=== PATIENT | male | born 1935 | race Caucasian/White ===

== ENCOUNTER 2023-05-04 04:24 | Emergency (ER) | payer MEDICARE, SELFPAY ==
[2023-05-04] VITALS (16 sets, daily range): BP systolic 110–159; BP diastolic 61–74; PULSE 82–99; RESP 18–33; TEMP 36.7; O2SAT 92–96; BMI 28.5
--- NOTE | 2023-05-04 04:30 | XRR_ITS ---
PROCEDURE INFORMATION: Exam: XR Chest Exam date and time: 05/04/2023 4:33 AM Age: 87 years old Clinical indication: Other: General weakness TECHNIQUE: Imaging protocol: Radiologic exam of the chest. Views: 1 view. COMPARISON: No relevant prior studies available. FINDINGS: Lungs: Unremarkable. No consolidation. Pleural spaces: Unremarkable. No pleural effusion. No pneumothorax. Heart/Mediastinum: Unremarkable. No cardiomegaly. Bones/joints: Degenerative changes are noted in the bones. XR/XR chest 1V portable [id number] IMPRESSION: No acute cardiopulmonary disease.
--- NOTE | 2023-05-04 04:32 | ECG_ITS ---
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 Measurements Intervals [place] Rate: 98 P: 45 TX: 180 QRS: -14 QRSD: 97 T: 7 QT: 359 QTc: 460 Interpretive Statements SINUS RHYTHM WITH FREQUENT VENTRICULAR PREMATURE COMPLEXES WITH OCCASIONAL SUPRAVENTRICULAR PREMATURE COMPLEXES INCOMPLETE RIGHT BUNDLE BRANCH BLOCK [90+ ms QRS DURATION, TERMINAL R IN V1/V2, 40+ ms S IN I/aVL/V4/V5/V6] VOLTAGE CRITERIA FOR LVH [MEETS CRITERIA IN ONE OF: R(aVL), S(V1), R(V5), R(V5/V6)+S(V1)] INFERIOR MYOCARDIAL INFARCTION , PROBABLY OLD [40+ ms Q WAVE AND/OR ST/T ABNORMALITY IN II/aVF] No previous ECG available for comparison Electronically Signed On 05-04-2023 7:50:38 CDT by Jeevan Foster M.D. [email or web address] Mediapearl river county hospitalOrganic Pizza Kitchenkindred hospital [facility].[email or web address]/store/OM/[id number]
[2023-05-04] MEDS: sodium chloride 0.9% 1,000 ML 999 ML IV (04:42)
--- NOTE | 2023-05-04 04:42 | ED_ITS ---
HPI - Weakness General: Chief complaint: Weakness Stated complaint: weakness Time Seen by Provider: 05/04/23 04:25 Source: patient and EMS Mode of arrival: EMS Limitations: no limitations History of Present Illness: 87-year-old male states he has been having increasing weakness over the last 2 days he states that tonight he did get out of bed and then could not walk. He states he is not really able to stand on his own at this time. He denies any fevers she denies any pain anywhere. He states he feels at this point he cannot really take care of himself and only lives with his . Associated symptoms: Denies chest pain, chills, dysuria, fever(s), headache(s), nausea or vomiting Review of Systems Const: Denies: fever(s) or chills Eyes: Denies: blurry vision ENMT: Denies: throat pain or dental pain Card: Denies: chest pain Resp: Denies: dyspnea GI: Denies: abdominal pain, nausea, vomiting or diarrhea : Denies: dysuria Musc: Denies: neck pain or back pain Skin/Breast: Denies: rash Neuro: Reports: weakness in extremities; Denies: headache(s) Physical Exam Const: COMMON NORMALS: patient oriented x3 GENERAL APPEARANCE: frail appearing HENMT: COMMON NORMALS: normocephalic and atraumatic HEAD & SCALP: normocephalic and atraumatic Eye: COMMON NORMALS: Equal, round and reactive pupils present and EOMs intact bilaterally PUPIL: Yes Equal, round and reactive pupils present Neck/C-Spine: COMMON NORMALS: full ROM and supple Chest: COMMONS NORMALS: normal inspection of the chest and normal palpation of entire chest wall Resp: COMMON NORMALS: normal respiratory effort, No retractions, No use of accessory muscles and clear to auscultation bilaterally AUSCULTATION: clear to auscultation bilaterally Cardio: COMMON NORMALS: regular rate, regular rhythm and No murmurs present (Cardio) RATE: regular rate RHYTHM: regular rhythm GI: COMMON NORMALS: Normal to inspection, nondistended, normoactive bowel sounds present, Soft to palpation, non-tender and no masses PALPATION: Yes Soft to palpation Extremity: COMMON NORMALS: normal to inspection and full ROM Neuro: COMMON NORMALS: patient oriented x3, moves all extremities and no focal motor deficits Psych: COMMON NORMALS: mental status grossly normal, Normal thought process present and cooperative THOUGHT PROCESS: Normal thought process present Skin: COMMON NORMALS: no rashes or lesions noted and no wounds GENERAL SKIN EXAM: no rashes or lesions noted Course Vital Signs: Vital signs: Vital Signs Temperature 98.1 F 05/04/23 04:25 Pulse Rate 96 05/04/23 05:30 Respiratory Rate 31 H 05/04/23 05:30 Blood Pressure 150/74 05/04/23 05:30 Pulse Oximetry 96 05/04/23 05:25 Oxygen Delivery Me thod Room Air 05/04/23 04:25 MDM - Weakness Medical Decision Making Patient presents with generalized weakness his blood work here is all normal states he typically uses a cane only at times I did walk him with a walker he ambulated well here we will discharge him home with a walker he is to follow-up with PCP and return if worsening. I did discuss admission he states that he needs to go home though as he has to help his . Informed if he gets weak or not able ambulate with a walker he is return Medical Records I reviewed the patient's medical records. Lab Data I reviewed the patient's lab results. 05/04/23 05:00 05/04/23 05:00 Radiology Impressions Chest X-Ray 05/04/23 04:30 IMPRESSION: No acute cardiopulmonary disease. Laboratory Results WBC 9.43 10^3/uL (3.29-11.43) 05/04/23 05:00 RBC 4.92 10^6/uL (3.85-5.65) 05/04/23 05:00 Hgb 14.10 g/dL (11.27-16.99) 05/04/23 05:00 Hct 44.9 % (37-53) 05/04/23 05:00 MCV 91.3 fl (82-101) 05/04/23 05:00 MCH 28.7 pg (27-33) 05/04/23 05:00 MCHC 31.4 g/dL (30-55) 05/04/23 05:00 RDW 13.2 % (12.1-15.1) 05/04/23 05:00 Plt Count 140 10^3/cmm (157-399) L 05/04/23 05:00 MPV 10.4 fL (7.4-10.4) 05/04/23 05:00 Neut % (Auto) 84.9 % 05/04/23 05:00 Lymph % (Auto) 7.2 % 05/04/23 05:00 [place] % (Auto) 7.2 % 05/04/23 05:00 Eos % (Auto) 0.0 % 05/04/23 05:00 Baso % (Auto) 0.3 % 05/04/23 05:00 Neut # (Auto) 8.00 10^3/uL (1.8-7.7) H 05/04/23 05:00 Lymph # (Auto) 0.7 10^3/uL (0.8-4.8) L 05/04/23 05:00 [place] # (Auto) 0.7 10^3/uL (0.2-0.9) 05/04/23 05:00 Eos # (Auto) 0.0 10^3/uL (0.0-0.8) 05/04/23 05:00 Baso # (Auto) 0.0 10^3/uL (0.0-0.1) 05/04/23 05:00 Nucleated RBC % (auto) 0 % 05/04/23 05:00 Nucleated RBCs # 0.0 /100WBC 05/04/23 05:00 PT 14.70 SECONDS (12.1-14.9) 05/04/23 05:00 INR 1.11 (0.8-1.2) 05/04/23 05:00 Sodium 139 mmol/L (136-145) 05/04/23 05:00 Potassium 3.7 mmol/L (3.5-5.1) 05/04/23 05:00 Chloride 104 mmol/L (98-107) 05/04/23 05:00 Carbon Dioxide 26 mmol/L (22-29) 05/04/23 05:00 Anion Gap 12.7 (5-19) 05/04/23 05:00 BUN 20 mg/dL (8-23) 05/04/23 05:00 Creatinine 1.0 mg/dL (0.7-1.2) 05/04/23 05:00 GFR Calculation Not Reportable 05/04/23 05:00 Glucose 133 mg/dL (65-115) H 05/04/23 05:00 Calculated Osmolality 293 mOsm/kg (285-295) 05/04/23 05:00 Calcium 8.4 mg/dL (8.5-10.5) L 05/04/23 05:00 Magnesium 1.9 mg/dL (1.7-2.3) 05/04/23 05:00 Total Bilirubin 0.8 mg/dL (0.15-1.2) 05/04/23 05:00 AST 20 U/L (0-40) 05/04/23 05:00 ALT 12 U/L (0-41) 05/04/23 05:00 Alkaline Phosphatase 61 U/L (40-130) 05/04/23 05:00 Troponin T Baseline 34 ng/L (0-15) H 05/04/23 05:00 Total Protein 6.0 g/dL (6.6-8.7) L 05/04/23 05:00 Albumin 3.7 g/dL (3.5-5.2) 05/04/23 05:00 Globulin 2.3 g/dL (1.3-4.6) 05/04/23 05:00 TSH 0.60 uIU/mL (0.27-4.20) 05/04/23 05:00 Urine Color Yellow (Yellow) 05/04/23 04:51 Urine Appearance Clear (CLEAR) 05/04/23 04:51 Urine pH 6 (5-7) 05/04/23 04:51 Ur Specific [place] 1.010 (1.005-1.030) 05/04/23 04:51 Urine Protein Neg (Negative) 05/04/23 04:51 Urine Glucose (UA) Norm (Normal) 05/04/23 04:51 Urine Ketones 1+ (Negative) H 05/04/23 04:51 Urine Blood 2+ (Negative) H 05/04/23 04:51 Urine Nitrate Negative (Negative) 05/04/23 04:51 Urine Bilirubin Neg (Negative) 05/04/23 04:51 Urine Urobilinogen 1 mg/dL (Negative) H 05/04/23 04:51 Ur Leukocyte Esterase Negative (Negative) 05/04/23 04:51 Urine RBC 0-4 /hpf (0-2) H 05/04/23 04:51 Urine WBC None /hpf (0-5) 05/04/23 04:51 Ur Squamous Epith Cells 0-4 /hpf (0-5) H 05/04/23 04:51 Amorphous Sediment Not Reportable 05/04/23 04:51 Urine Bacteria Trace /hpf (NONE) 05/04/23 04:51 Urine Mucus 2+ /hpf 05/04/23 04:51 SARS-CoV-2 Ag (Rapid) negative (Negative) 05/04/23 04:44 Discharge Plan Discharge Patient Disposition: Home Clinical Impression: Weakness Condition: Stable Discharge Orders: Discharge ED (Routine); Ordered 05/04/23 Ordered By: Ja Zamarripa Referrals: Geremias Kramer [Primary Care Provider] - Discharge Diet: Advance as tolerated Discharge Activity: Resume usual activity Patient Instructions: Weakness (ED) Coding Level of Care Code ED Animal Laboratory Technician for Baljinder Ring
[2023-05-04 05:17] LABS: Basophils % 0.3 %; Hematocrit 44.9 % (37-53); Lymphocytes # 0.7 10^3/uL (0.8-4.8); Lymphocytes % 7.2 %; Mean Corpuscular HGB Conc 31.4 g/dL (30-55); Mean Corpuscular Hemoglobin 28.7 pg (27-33); Mean Corpuscular Volume 91.3 fl (82-101); Mean Platelet Volume 10.4 fL (7.4-10.4); Monocytes # 0.7 10^3/uL (0.2-0.9); Monocytes % 7.2 %; Neutrophils % 84.9 %; Nucleated Red Blood Cells % 0 %; Platelet Count 140 10^3/cmm (157-399); Red Blood Count 4.92 10^6/uL (3.85-5.65); Red Cell Distribution Width 13.2 % (12.1-15.1); White Blood Count 9.43 10^3/uL (3.29-11.43)
[2023-05-04 05:32] LABS: SARS Covid-2 Antigen negative (Negative)
[2023-05-04 05:32] LABS: Troponin(5th) Baseline 34 ng/L (0-15)
[2023-05-04 05:44] LABS: Alanine Aminotransferase 12 U/L (0-41); Albumin Level 3.7 g/dL (3.5-5.2); Alkaline Phosphatase 61 U/L (40-130); Anion Gap 12.7 (5-19); Aspartate Amino Transferase 20 U/L (0-40); Blood Urea Nitrogen 20 mg/dL (8-23); Calcium 8.4 mg/dL (8.5-10.5); Carbon Dioxide 26 mmol/L (22-29); Chloride 104 mmol/L (98-107); Globulin 2.3 g/dL (1.3-4.6); Glucose 133 mg/dL (65-115); Magnesium 1.9 mg/dL (1.7-2.3); Osmolality Calculated 293 mOsm/kg (285-295); Potassium 3.7 mmol/L (3.5-5.1); Sodium 139 mmol/L (136-145); Total Bilirubin 0.8 mg/dL (0.15-1.2)
[2023-05-04 05:44] LABS: Add Urine Culture? No; Add Urine Microscopic? YES; Bacteria Urine TRACE /hpf; Bilirubin Urine Neg (Negative); Blood Urine 2+ (Negative); Glucose Urine UA Norm (Normal); Ketones Urine 1+ (Negative); Leukocyte Esterase Urine Negative (Negative); Mucus Urine 2+ /hpf; Nitrate Urine Negative (Negative); Protein Urine Neg (Negative); RBC Urine 0-4 /hpf (0-2); Squamous Epithelial Cell Urine 0-4 /hpf (0-5); Urine Appearance Clear (CLEAR); Urine Color Yellow (Yellow); Urobilinogen Urine 1 mg/dL (Negative); pH Urine 6 (5-7)
[2023-05-04 05:46] LABS: INR 1.11 (0.8-1.2)
--- NOTE | 2023-05-04 06:11 | PC.NURSE ---
Call to Attempted to call at home, no answer at this time and no voice mail set up. Also attempted to call patients Elyse zhou, and call went straight to voice mail.
[2023-05-04 07:39] LABS: Troponin 5 2HR 37.25 ng/L (0-15)
[2023-05-04 07:46] LABS: Troponin 5 2HR Delta 3.25 ABS# (0-10)
--- NOTE | 2023-05-04 08:16 | PC.NURSE ---
rec'd phone call from . states she is getting a family member to come get her and then would be here to get him. states it will take a couple of hours and she should be here.
== END 2023-05-04 10:51 | disposition home or self-care (01) ==
PROVIDERS: Emergency Provider Emergency Medicine; PCP Family Medicine
DX: R53.1 Weakness (principal); Z20.822 Contact with and (suspected) exposure to COVID-19
CPT/HCPCS: 36415; 71045; 80053; 81001; 83735; 84443; 84484; 85025; 85610; 87426; 93005; 96360; 99285; J7030

== ENCOUNTER 2023-05-16 21:11 | Inpatient (IN) | payer MEDICARE, SELFPAY ==
--- NOTE | 2023-05-16 21:21 | XRR_ITS ---
PROCEDURE INFORMATION: Exam: XR Chest Exam date and time: 05/16/2023 9:26 PM Age: 86 years old Clinical indication: Fever TECHNIQUE: Imaging protocol: Radiologic exam of the chest. Views: 1 view. COMPARISON: CR (CHEST, ) 05/04/2023 4:33 AM FINDINGS: Lungs: See Heart/Mediastinum finding. Pleural spaces: Unremarkable. No pleural effusion. No pneumothorax. Heart/Mediastinum: Cardiomegaly and mild pulmonary vascular congestion. Bones/joints: Unremarkable. XR/XR chest 1V portable [id number] IMPRESSION: Cardiomegaly and mild pulmonary vascular congestion.
[2023-05-16 21:25] VITALS: BP 186/96; PULSE 90; RESP 22; TEMP 37.3; O2SAT 92
--- NOTE | 2023-05-16 21:29 | ED_ITS ---
HPI - General Adult General: Chief complaint: Fever Stated complaint: fever Time Seen by Provider: 05/16/23 21:12 Source: patient and EMS Mode of arrival: EMS Limitations: no limitations History of Present Illness: 86-year-old male states that he had a tick bite to his right inner leg 2 weeks ago he states that he has had worsening erythema states today he was feeling ill 7 temperature up to 101 with EMS states that also last 2 days he has had a slight cough he denies any shortness of breath he denies any vomiting or diarrhea. He does have pain in his leg Associated symptoms: Deny chest pain, dyspnea, headache(s), nausea or vomiting Review of Systems Const: Reports: fever(s), chills, body aches and fatigue; Denies: change in appetite Eyes: Denies: eye discomfort ENMT: Denies: throat pain or dental pain Card: Denies: chest pain Resp: Reports: non-productive cough; Denies: dyspnea GI: Denies: abdominal pain, nausea, vomiting or diarrhea : Denies: dysuria Musc: Denies: neck pain or back pain Skin/Breast: Reports: erythema Neuro: Denies: headache(s) Physical Exam Const: COMMON NORMALS: patient oriented x3 GENERAL APPEARANCE: ill appearing HENMT: COMMON NORMALS: normocephalic and atraumatic HEAD & SCALP: normocephalic and atraumatic Neck/C-Spine: COMMON NORMALS: full ROM and supple Chest: COMMONS NORMALS: normal inspection of the chest and normal palpation of entire chest wall Resp: COMMON NORMALS: normal respiratory effort, No retractions, No use of accessory muscles and clear to auscultation bilaterally AUSCULTATION: clear to auscultation bilaterally Cardio: COMMON NORMALS: regular rate, regular rhythm and No murmurs present (Cardio) RATE: regular rate RHYTHM: regular rhythm GI: COMMON NORMALS: Normal to inspection, nondistended, normoactive bowel sounds present, Soft to palpation, non-tender and no masses PALPATION: Yes Soft to palpation Extremity: COMMON NORMALS: full ROM Neuro: COMMON NORMALS: patient oriented x3, moves all extremities and no focal motor deficits Psych: COMMON NORMALS: mental status grossly normal, Normal thought process present and cooperative THOUGHT PROCESS: Normal thought process present Skin: NARRATIVE SKIN EXAM: Wound to right inner leg with black eschar in the center with the surrounding erythema that is warm to touch roughly 4 cm in diameter states there is a tick bite there Course Vital Signs: Vital signs: Vital Signs Temperature 99.1 F 05/16/23 21:25 Pulse Rate 77 05/16/23 21:30 Respiratory Rate 18 05/16/23 21:30 Blood Pressure 181/70 05/16/23 21:30 Pulse Oximetry 93 05/16/23 21:30 Oxygen Delivery Me thod Room Air 05/16/23 21:30 MDM - General Adult Medical Decision Making Patient presents here with fever he is also had cough congestion with some leg edema he does have a circular rash to his left lower leg could be cellulitis we will send a tick titer could be possible Lyme disease or other tickborne illness patient started on IV antibiotics, blood cultures as well patient has generalized weakness as well and will admit at this time for some IV antibiotics. Medical Records I reviewed the patient's medical records. Lab Data 05/16/23 21:36 05/16/23 21:36 Radiology Impressions Chest X-Ray 05/16/23 21:21 IMPRESSION: Cardiomegaly and mild pulmonary vascular congestion. Laboratory Results WBC 13.16 10^3/uL (3.29-11.43) H 05/16/23 21:36 RBC 4.94 10^6/uL (3.85-5.65) 05/16/23 21:36 Hgb 13.90 g/dL (11.27-16.99) 05/16/23 21:36 Hct 43.2 % (37-53) 05/16/23 21:36 MCV 87.4 fl (82-101) 05/16/23 21:36 MCH 28.1 pg (27-33) 05/16/23 21:36 MCHC 32.2 g/dL (30-55) 05/16/23 21:36 RDW 13.2 % (12.1-15.1) 05/16/23 21:36 Plt Count 176 10^3/cmm (157-399) 05/16/23 21:36 MPV 10.2 fL (7.4-10.4) 05/16/23 21:36 Neut % (Auto) 83.2 % 05/16/23 21:36 Lymph % (Auto) 10.1 % 05/16/23 21:36 [place] % (Auto) 5.5 % 05/16/23 21:36 Eos % (Auto) 0.3 % 05/16/23 21:36 Baso % (Auto) 0.3 % 05/16/23 21:36 Neut # (Auto) 10.94 10^3/uL (1.8-7.7) H 05/16/23 21:36 Lymph # (Auto) 1.3 10^3/uL (0.8-4.8) 05/16/23 21:36 [place] # (Auto) 0.7 10^3/uL (0.2-0.9) 05/16/23 21:36 Eos # (Auto) 0.0 10^3/uL (0.0-0.8) 05/16/23 21:36 Baso # (Auto) 0.0 10^3/uL (0.0-0.1) 05/16/23 21:36 Nucleated RBC % (auto) 0 % 05/16/23 21:36 Nucleated RBCs # 0.0 /100WBC 05/16/23 21:36 Sodium 139 mmol/L (136-145) 05/16/23 21:36 Potassium 4.0 mmol/L (3.5-5.1) 05/16/23 21:36 Chloride 100 mmol/L (98-107) 05/16/23 21:36 Carbon Dioxide 31 mmol/L (22-29) H 05/16/23 21:36 Anion Gap 12.0 (5-19) 05/16/23 21:36 BUN 22 mg/dL (8-23) 05/16/23 21:36 Creatinine 0.7 mg/dL (0.7-1.2) 05/16/23 21:36 GFR Calculation Not Reportable 05/16/23 21:36 Glucose 118 mg/dL (65-115) H 05/16/23 21:36 Calculated Osmolality 292 mOsm/kg (285-295) 05/16/23 21:36 Lactic Acid 1.0 mmol/L (0.5-2.2) 05/16/23 21:36 Calcium 8.7 mg/dL (8.5-10.5) 05/16/23 21:36 Total Bilirubin 0.9 mg/dL (0.15-1.2) 05/16/23 21:36 AST 43 U/L (0-40) H 05/16/23 21:36 ALT 52 U/L (0-41) H 05/16/23 21:36 Alkaline Phosphatase 66 U/L (40-130) 05/16/23 21:36 NT-Pro-B Natriuret Pep 2165 pg/mL (0-450) H 05/16/23 21:36 Total Protein 6.3 g/dL (6.6-8.7) L 05/16/23 21:36 Albumin 3.5 g/dL (3.5-5.2) 05/16/23 21:36 Globulin 2.8 g/dL (1.3-4.6) 05/16/23 21:36 Urine Color Yellow (Yellow) 05/16/23 22:13 Urine Appearance Sl hazy (CLEAR) A 05/16/23 22:13 Urine pH 5 (5-7) 05/16/23 22:13 Ur Specific [place] 1.020 (1.005-1.030) 05/16/23 22:13 Urine Protein Trace (Negative) 05/16/23 22:13 Urine Glucose (UA) Norm (Normal) 05/16/23 22:13 Urine Ketones Negative (Negative) 05/16/23 22:13 Urine Blood Neg (Negative) 05/16/23 22:13 Urine Nitrate Negative (Negative) 05/16/23 22:13 Urine Bilirubin Neg (Negative) 05/16/23 22:13 Urine Urobilinogen 1 mg/dL (Negative) H 05/16/23 22:13 Ur Leukocyte Esterase Negative (Negative) 05/16/23 22:13 Urine RBC None /hpf (0-2) 05/16/23 22:13 Urine WBC None /hpf (0-5) 05/16/23 22:13 Ur Squamous Epith Cells None /hpf (0-5) 05/16/23 22:13 Amorphous Sediment 2+ /hpf 05/16/23 22:13 Urine Bacteria Trace /hpf (NONE) 05/16/23 22:13 Urine Mucus 2+ /hpf 05/16/23 22:13 SARS-CoV-2 Ag (Rapid) negative (Negative) 05/16/23 21:53 Discharge Plan Discharge Patient Disposition: Admitted As Inpatient Clinical Impression: Cellulitis, Fever, Leg edema Condition: Stable Referrals: Geremias Kramer [Primary Care Provider] - Coding Level of Care Code ED Personal Fitness Manager for Chg Jhonathan
[2023-05-16 21:30] VITALS: BP 181/70; PULSE 77; RESP 18; O2SAT 93
[2023-05-16] MEDS: acetaminophen 325 mg Tablet 650 MG PO (21:36)
[2023-05-16] MEDS: piperacillin-tazobactam 3.375 GM in sodium chloride 0.9% (plus) 50 ML IV (21:43)
[2023-05-16] MEDS: vancomycin 1,000 MG in sodium chloride 0.9% 250 ML 250 MG IV (21:45)
[2023-05-16 21:46] LABS: Basophils % 0.3 %; Eosinophils % 0.3 %; Hematocrit 43.2 % (37-53); Lymphocytes # 1.3 10^3/uL (0.8-4.8); Lymphocytes % 10.1 %; Mean Corpuscular HGB Conc 32.2 g/dL (30-55); Mean Corpuscular Hemoglobin 28.1 pg (27-33); Mean Corpuscular Volume 87.4 fl (82-101); Mean Platelet Volume 10.2 fL (7.4-10.4); Monocytes # 0.7 10^3/uL (0.2-0.9); Monocytes % 5.5 %; Neutrophils # 10.94 10^3/uL (1.8-7.7); Neutrophils % 83.2 %; Nucleated Red Blood Cells % 0 %; Platelet Count 176 10^3/cmm (157-399); Red Blood Count 4.94 10^6/uL (3.85-5.65); Red Cell Distribution Width 13.2 % (12.1-15.1); White Blood Count 13.16 10^3/uL (3.29-11.43)
[2023-05-16 22:11] LABS: SARS Covid-2 Antigen negative (Negative)
[2023-05-16 22:16] LABS: Alanine Aminotransferase 52 U/L (0-41); Albumin Level 3.5 g/dL (3.5-5.2); Alkaline Phosphatase 66 U/L (40-130); Aspartate Amino Transferase 43 U/L (0-40); Blood Urea Nitrogen 22 mg/dL (8-23); Calcium 8.7 mg/dL (8.5-10.5); Carbon Dioxide 31 mmol/L (22-29); Chloride 100 mmol/L (98-107); Globulin 2.8 g/dL (1.3-4.6); Glucose 118 mg/dL (65-115); NT Pro B Type Natriuretic Pept 2165 pg/mL (0-450); Osmolality Calculated 292 mOsm/kg (285-295); Sodium 139 mmol/L (136-145); Total Bilirubin 0.9 mg/dL (0.15-1.2); Total Protein 6.3 g/dL (6.6-8.7)
[2023-05-16 22:31] LABS: Add Urine Culture? No; Add Urine Microscopic? YES; Amorphous Sediment Urine 2+ /hpf; Bacteria Urine TRACE /hpf; Bilirubin Urine Neg (Negative); Blood Urine Neg (Negative); Glucose Urine UA Norm (Normal); Ketones Urine Negative (Negative); Leukocyte Esterase Urine Negative (Negative); Mucus Urine 2+ /hpf; Nitrate Urine Negative (Negative); Protein Urine Trace (Negative); Urine Appearance SL Hazy (CLEAR); Urine Color Yellow (Yellow); Urobilinogen Urine 1 mg/dL (Negative); pH Urine 5 (5-7)
[2023-05-16] MEDS: FUROsemide 10 mg/mL SDV 4mL 40 MG IVP (22:55)
[2023-05-16 23:03] VITALS: BP 136/68; PULSE 78; RESP 22; TEMP 35.9; O2SAT 92
--- NOTE | 2023-05-16 23:58 | ECG_ITS ---
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 Measurements Intervals [place] Rate: 74 P: 31 [place]: 176 QRS: -15 QRSD: 94 T: 54 QT: 412 QTc: 460 Interpretive Statements SINUS RHYTHM WITH OCCASIONAL SUPRAVENTRICULAR PREMATURE COMPLEXES Compared to ECG 05/04/2023 04:32:51 Ventricular premature complex(es) no longer present Incomplete right bundle-branch block no longer present Left ventricular hypertrophy no longer present Myocardial infarct finding no longer present Electronically Signed On 05-17-2023 15:47:03 CDT by Darrius Rose M.D. [id number]
[2023-05-17] VITALS (15 sets, daily range): BP systolic 128–159; BP diastolic 59–84; PULSE 70–106; RESP 18–37; TEMP 36.7; O2SAT 90–96
--- NOTE | 2023-05-17 00:11 | PM.HP ---
Providers/Chief Complaint Admitting Physician: Rica Benedict MD Primary Care Provider: Geremias Kramer Chief Complaint: fever History of Present Illness Santos Sanchez is a 86 year old male with history of hypertension hyperlipidemia BPH, obstructive sleep apnea on CPAP at night, has not been using CPAP recently was brought in by the family for not feeling well and decreased appetite since last few days. He had occasional chills but no fever, and productive cough for 1 week. No history of sick contact. His reports he had a tick bite 2 weeks ago to the right lower extremity but was never given oral antibiotics by the primary care physician. He he was doing wound care with peroxide and triple antibiotic. reports that the wound is getting better. He denied any pain at the site of tick bite. His also reports bilateral lower extremity edema since last 2 days but denied any shortness of breath or chest pain. No history of urinary or bowel complaints. Review of Systems Const: Reports: chills, body aches and fatigue; Denies: change in appetite Eyes: Denies: eye discomfort ENMT: Denies: throat pain or dental pain Card: Denies: chest pain Resp: Reports: non-productive cough; Denies: dyspnea GI: Denies: abdominal pain, nausea, vomiting or diarrhea : Denies: dysuria Musc: Denies: neck pain or back pain Skin/Breast: Reports: erythema Neuro: Denies: headache(s) Medications/Allergies Home Medications Medication Instructions Recorded Confirmed Last Taken Type benazepril 40 mg tablet 40 mg PO DAILY 05/16/23 05/16/23 Unknown History clopidogrel 75 mg tablet 75 mg PO DAILY 05/16/23 05/16/23 Unknown History finasteride 5 mg tablet 5 mg PO DAILY 05/16/23 05/16/23 Unknown History rosuvastatin 10 mg tablet 10 mg PO DAILY 05/16/23 05/16/23 Unknown History tamsulosin 0.4 mg capsule 0.4 mg PO DAILY 05/16/23 05/16/23 Unknown History Allergies Allergy/AdvReac Type Severity Reaction Status Date / Time No Known Allergies Allergy Verified 05/16/23 21:31 Vitals/I&O/Wt Last Vital Signs Temp 96.7 F L 05/16/23 23:03 Pulse 78 05/16/23 23:03 Resp 22 H 05/16/23 23:03 BP 136/68 05/16/23 23:03 Pulse Ox 92 05/16/23 23:03 O2 Del Method Room Air 05/16/23 23:03 05/16/23 05/16/23 05/17/23 14:59 22:59 06:59 Intake Total 300 / 300 Balance 300 / 300 Weight last 48 hrs Weight 108.409 kg Physical Exam Narrative: He is alert awake oriented x3 hearing impaired in mild respiratory distress which is his baseline as per the family Chest clear to auscultation bilaterally no wheezing present, saturating 93% on 2 L nasal cannula Cardiovascular normal heart sounds with irregular rhythm Abdomen soft nondistended nontender normal bowel sounds Extremities bilateral 2+ edema present, superficial varicosities seen, 4 x 4 centimeter erythematous area with central black eschar seen at the site of tick bite. No active signs of secondary infection seen. Data 05/16/23 21:36 05/16/23 21:36 Micro: Microbiology 05/16/23 21:36 Blood Culture - Preliminary Blood SPECIMEN COLLECTED 05/16/23 21:36 Blood Culture - Preliminary Blood SPECIMEN COLLECTED CXR: Radiologist's impression: Cardiomegaly and mild pulmonary vascular congestion. ? A&P Assessment and plan (1) Fluid overload: 86-year-old male was brought in by family for complaint of feeling unwell and decreased appetite since last few days and was found to have pulmonary vascular congestion, bilateral leg edema, and BNP of 2100 likely secondary to congestive heart failure. No prior history of CHF. Will give IV Lasix 40 mg every 12 hours Monitor I's and O's Daily weight We will get a 2D echo in the morning Cardiac diet Subcutaneous Lovenox 30 mg daily for DVT prophylaxis As per the family Claudia Sanchez, he does not want to be resuscitated or intubated. Resume home medications. (2) Fever: Likely secondary to congestive heart failure versus flulike illness. Will monitor for now. (3) Tick bite: Tick bite wound to right lower extremity resolving, no active signs of infection seen. Less likely Lyme disease Continue wound care with peroxide and triple antibiotic. No need for oral antibiotics for now. Follow-up Lyme titers as sent by the ER physician. Attestations Medical Necessity Statement*: He will need continued hospitalization for more than 2 midnights for diuresis and further work-up for congestive heart failure, Time Spent in Patient Care: 30 minutes Coding Level of Care Code Acute Code for Chg Fwd Diagnoses Fluid overload E87.70 Fever R50.9 Tick bite W57.XXXA Time Spent (min) 30
[2023-05-17] MEDS: enoxaparin 30 mg/0.3 mL Syringe SUBCUT (00:49)
[2023-05-17] MEDS: famotidine 20 mg/2 mL INJ IVP ×3 (00:49→21:53)
[2023-05-17 04:48] LABS: NT Pro B Type Natriuretic Pept 2729 pg/mL (0-450)
[2023-05-17] MEDS: finasteride 5 mg Tablet PO (08:42)
[2023-05-17] MEDS: clopidogrel 75 mg Tablet PO (08:42)
[2023-05-17] MEDS: tamsulosin 0.4 mg Capsule PO (08:42)
[2023-05-17] MEDS: lisinopril 20 mg Tablet PO (08:42)
[2023-05-17] MEDS: FUROsemide 10 mg/mL SDV 4mL 40 MG IVP (12:44)
--- NOTE | 2023-05-17 16:28 | P.PN_ITS ---
Subjective Subjective: No new complaints today. Place of his tick bite is itchy but other than that he does not offer any new complaints. States his breathing is at baseline. Legs are noted to be asymmetric with regards to swelling. Right worse than left. Medications: Reviewed: Yes Vitals/I&O/Wt Last Vital Signs Temp 98.0 F 05/17/23 03:26 Pulse 83 05/17/23 12:00 Resp 18 05/17/23 12:00 BP 151/74 05/17/23 12:00 Pulse Ox 93 05/17/23 12:00 O2 Del Method Room Air 05/17/23 12:00 05/17/23 05/17/23 05/17/23 06:59 14:59 22:59 Intake Total 100 / 400 240 / 240 Output Total 1250 / 1250 975 / 975 Balance -1150 / -850 -735 / -735 Weight last 48 hrs Weight 108.409 kg Physical Exam Narrative: General: No acute distress, AO x3 HEENT: PERRLA, pupils bilaterally equal and reactive, pallors not present Chest: Normal vesicular breath sounds, no added sounds, equal good air entry bilaterally CVS: S1-S2 regular, no murmurs, no tachycardia, no gallops, no rubs Abdomen: Soft, nontender, no organomegaly, bowel sounds present Neuro: No focal deficits, no facial deformity, AO x3, power 5/5 in all limbs Extremities: Dark eschar with surrounding erythema over medial calf just below the knee. Data 05/16/23 21:36 05/16/23 21:36 Micro: Microbiology 05/16/23 21:36 Blood Culture - Preliminary Blood SPECIMEN COLLECTED 05/16/23 21:36 Blood Culture - Preliminary Blood SPECIMEN COLLECTED A&P Assessment and plan (1) Fluid overload: 86-year-old male was brought in by family for complaint of feeling unwell and de creased appetite since last few days and was found to have pulmonary vascular congestion, bilateral leg edema, and BNP of 2100 likely secondary to congestive heart failure. No prior history of CHF. Continue Lasix IV reduced dose to 20 mg IV every 12 hours Monitor I's and O's Daily weight Awaiting echocardiogram Cardiac diet Check lower extremity Doppler to evaluate for DVT as noted to have asymmetric swelling today right worse than left Subcutaneous Lovenox 30 mg daily for DVT prophylaxis (2) Fever: Has not recurred in the hospital. Tmax 99 Fahrenheit. However he is noted to have some leukocytosis and mildly elevated LFTs which could be consistent with recent tickborne illness. We will start doxycycline. (3) Tick bite: Tick bite wound to right lower extremity resolving, no active signs of infection seen. Local wound care with mupirocin Doxycycline Attestations Medical Necessity Statement*: Continued need for IV diuresis, lower extremity Doppler, pending echo Coding Level of Care Code Acute Code for Chg Fwd Diagnoses Fluid overload E87.70 Fever R50.9 Tick bite W57.XXXA
--- NOTE | 2023-05-17 16:32 | USCV_ITS ---
Santos Sanchez Age: 86 Gender: M : 07/11/1936 Exam Date: 05/17/2023 16:43 Ordering Phys: Yuko Tate MD Technologist: Guadalupe Tinsley Exam Location: [facility] Indication: SOB with CHF suggestion BP: 151 / 74 HR: 74 Rhythm: Sinus Technical Quality: Adequate MEASUREMENTS (Male / Female) Normal Values 2D ECHO LV Diastolic Diameter PLAX 5.0 cm 4.2 - 5.9 / 3.9 - 5.3 cm LV Systolic Diameter PLAX 2.7 cm LV Chamber Size 3.0 cm IVS Diastolic Thickness 1.2 cm 0.6 - 1.0 / 0.6 - 0.9 cm IVS Systolic Thickness 1.8 cm LVPW Diastolic Thickness 1.8 cm 0.6 - 1.0 / 0.6 - 0.9 cm LVPW Systolic Thickness 2.1 cm RV Chamber Size 4.4 cm LVOT Diameter 2.0 cm LV Ejection Fraction 2D Teich 74.7 % LV Ejection Fraction MOD 2C 58.1 % LV Ejection Fraction 2C AL 64.0 % LA Diameter 4.7 cm LA Width 3.8 cm LA Height 4.4 cm RA Width 6.1 cm RA Height 5.8 cm Aorta at Sinotubular Diameter 3.2 cm IVC Diameter 2.8 cm M-MODE Aortic Annulus Diameter 3.4 cm LA Ao Ratio MM 1.5 MV E Point Septal Separation 0.4 cm DOPPLER AV Peak Velocity 250.0 cm/s LVOT Peak Velocity 132.0 cm/s AV Area Cont Eq vti 2.2 cm squared AV Area Cont Eq pk 1.7 cm squared MV Area PHT 4.2 cm squared Mitral E to A Ratio 1.3 MV E' Velocity 49.5 cm/s Mitral E to MV E' Ratio 10.3 Mitral E to LV E' Lateral Ratio 8.6 Mitral E to LV E' Septal Ratio 12.9 TR Peak Velocity 424.0 cm/s TR Peak Gradient 71.9 mmHg TR Mean Velocity 307.4 cm/s TR Mean Gradient 41.7 mmHg TR Velocity Time Integral 133.2 cm TV Peak E Velocity 59.0 cm/s Right Atrial Pressure 15.0 mmHg Pulmonary Artery Systolic Pressu 86.9 mmHg RV Acceleration Time 0.1 s RV Ejection Time 0.4 s RV AcT/ET 0.3 FINDINGS Left Ventricle Normal left ventricular size and systolic function, EF 59 %. Moderate left ventricular hypertrophy. No regional wall motion abnormalities. Right Ventricle The right ventricle is normal in size and function. Right Atrium Mildly dilated Left Atrium Mildly dilated Mitral Valve Mild mitral annular calcification. Mild mitral valve regurgitation. Aortic Valve Thickened aortic valve. Mild aortic valve regurgitation. Mild aortic valve stenosis with a valve area of 2.2 cm squared. Tricuspid Valve Moderate tricuspid valve regurgitation. Estimated pulmonary artery peak systolic pressure of 87 mmHg Pulmonic Valve Trace pulmonary valve regurgitation. Pericardium Normal pericardium without effusion. Aorta Normal ascending aorta dimension. IVC Dilated IVC with decreased respiratory variation. CONCLUSIONS Normal left ventricular size and systolic function, EF 59 %. Moderate left ventricular hypertrophy. No regional wall motion abnormalities. Mild biatrial enlargementThickened aortic valve. Mild aortic valve regurgitation. Mild aortic valve stenosis with a valve area of 2.2 cm squared. Severe pulmonary hypertension with an estimated pulmonary artery peak systolic pressure of 87 mmHg. Moderate tricuspid valve regurgitation. Trace pulmonary valve regurgitation. There is no pericardial effusion. There are no intracardiac masses. No similar previous studies are available for comparison Dr Zaid Diallo MD [facility] (Electronically Signed) Final Date: 17 May 2023 20:56 S
--- NOTE | 2023-05-17 16:32 | USR_ITS ---
PROCEDURE INFORMATION: Exam: US Duplex Lower Extremity Veins, Bilateral Exam date and time: 05/17/2023 5:07 PM Age: 86 years old Clinical indication: Edema, localized; Lower extremity, bilateral; Patient HX: Admit for chf. Very SOB; Additional info: Evlauate for dvt TECHNIQUE: Imaging protocol: Real-time duplex ultrasound of the bilateral extremities with 2-D kaplan scale, color Doppler flow and spectral waveform analysis including responses to compression and other maneuvers (when performed) with image documentation. Complete exam focused on the lower extremity veins. COMPARISON: No relevant prior studies available. FINDINGS: Right deep veins: Occlusive deep vein thrombosis extending from the proximal femoral vein through the peroneal and posterior tibial veins. The right common femoral vein is patent. Left deep veins: Unremarkable. The common femoral, femoral, proximal profunda femoral and popliteal veins are patent without thrombus. Normal Doppler waveforms. Normal compressibility and/or augmentation response. Superficial veins: Bilateral saphenofemoral junctions are patent without thrombus. Soft tissues: Unremarkable. US/[place] [id number] IMPRESSION: 1. Occlusive deep vein thrombosis involving the right femoral, popliteal, peroneal, and posterior tibial veins. 2. No evidence for deep vein thrombosis in the left lower extremity.
--- NOTE | 2023-05-17 17:43 | CTR_ITS ---
PROCEDURE INFORMATION: Exam: CTA Chest With Contrast Exam date and time: 05/17/2023 6:15 PM Age: 86 years old Clinical indication: Shortness of breath; Patient HX: PT is almost deaf and could not follow breathing instructions; Additional info: Evalute for pe TECHNIQUE: Imaging protocol: Computed tomographic angiography of the chest with contrast. Exam focused on the arteries. 3D rendering (Not supervised by radiologist): MIP and/or 3D reconstructed images were created by the technologist. Radiation optimization: All CT scans at this facility use at least one of these dose optimization techniques: automated exposure control; mA and/or kV adjustment per patient size (includes targeted exams where dose is matched to clinical indication); or iterative reconstruction. Contrast material: JESSICA 350; Contrast volume: 100 ml; Contrast route: INTRAVENOUS (IV); REPORTING DATA: Count of CT and Cardiac NM exams in prior 12 months: This patient has received 0 known CTs and 0 known cardiac nuclear medicine studies in the 12 months prior to the current study. COMPARISON: CR (CHEST, ) 05/16/2023 9:26 PM RADIATION DOSE METRICS: Total DLP (mGy-cm): 493 FINDINGS: Limitations: Significant breathing motion artifact is present. Pulmonary arteries: Multiple pulmonary emboli within segmental and smaller pulmonary artery branches in both lungs and in the lobar segment of the right upper lobe. No saddle embolus. Aorta: Unremarkable. No aortic aneurysm. No aortic dissection. Lungs: Right upper lobe calcified granuloma. Numerous small scattered pneumatoceles in both lungs. Mild mosaic attenuation in both lungs, most likely due to the pulmonary embolus. Atelectasis in both lower lobes. Focal consolidation in the posterior left lower lobe. Pleural spaces: Small right and trace left pleural effusions. No pneumothorax. Heart: Unremarkable. No cardiomegaly. No pericardial effusion. Heart RV/LV ratio: The RV/LV ratio is 1.3. Lymph nodes: Unremarkable. No enlarged lymph nodes. Liver: Calcified granulomas in the liver. Spleen: Calcified granulomas in the spleen. Bones/joints: Degenerative changes of the spine. No acute fracture. Soft tissues: Unremarkable. CT/CT angio chest PE protcl [id number] IMPRESSION: 1. Bilateral pulmonary emboli. 2. RV/LV ratio of 1.3 likely indicates elevated right heart pressure. 3. Focal consolidation in the left lower lobe could represent atelectasis, pneumonia, or pulmonary infarction. 4. Small right and trace left pleural effusions.
[2023-05-17] MEDS: atorvastatin 40 mg Tablet PO (17:52)
[2023-05-17] MEDS: enoxaparin 100 mg/mL Syringe SUBCUT (17:52)
[2023-05-17] MEDS: doxycycline 100 mg Tablet PO (17:52)
[2023-05-17] MEDS: iohexol 350 mg/mL 500 mL Btl (per mL) IV (18:26)
--- NOTE | 2023-05-17 21:17 | PC.NURSE ---
Spoke with Dr Raya regarding results of patient's chest CTA. Patient has multiple bilateral PE's. Dr Raya also spoke with Dr Tate to discussing possibilty changing Lovenox to Heparin drip. Plan is to keep patient on current Lovenox 100mg SQ every 12 hours.
--- NOTE | 2023-05-17 21:25 | PC.NURSE ---
This RN agrees with all documentation by SN Tete to this point. Will continue to monitor.
[2023-05-17] MEDS: FUROsemide 10 mg/mL SDV 2mL 20 MG IVP (21:54)
[2023-05-18] VITALS (8 sets, daily range): BP systolic 149–174; BP diastolic 70–92; PULSE 71–86; RESP 26–33; TEMP 36.7–37.1; O2SAT 92–97
--- NOTE | 2023-05-18 00:25 | PC.NURSE ---
Patient becoming more confused as the night progresses. Patient's spouse remains at bedside and reports feeling aggitated with him.
[2023-05-18] MEDS: enoxaparin 100 mg/mL Syringe SUBCUT ×2 (05:05→17:25)
[2023-05-18 05:08] LABS: Basophils % 0.4 %; Eosinophils # 0.1 10^3/uL (0.0-0.8); Eosinophils % 1.1 %; Hematocrit 38.8 % (37-53); Lymphocytes # 2.1 10^3/uL (0.8-4.8); Lymphocytes % 22.2 %; Mean Corpuscular HGB Conc 32.5 g/dL (30-55); Mean Corpuscular Hemoglobin 27.9 pg (27-33); Mean Platelet Volume 10.6 fL (7.4-10.4); Monocytes # 0.7 10^3/uL (0.2-0.9); Monocytes % 7.5 %; Neutrophils # 6.39 10^3/uL (1.8-7.7); Neutrophils % 68.1 %; Nucleated Red Blood Cells % 0 %; Platelet Count 183 10^3/cmm (157-399); Red Blood Count 4.51 10^6/uL (3.85-5.65); Red Cell Distribution Width 13.2 % (12.1-15.1); White Blood Count 9.38 10^3/uL (3.29-11.43)
[2023-05-18 05:36] LABS: Alanine Aminotransferase 47 U/L (0-41); Albumin Level 3.1 g/dL (3.5-5.2); Alkaline Phosphatase 68 U/L (40-130); Anion Gap 12.1 (5-19); Aspartate Amino Transferase 41 U/L (0-40); Blood Urea Nitrogen 20 mg/dL (8-23); Calcium 8.5 mg/dL (8.5-10.5); Carbon Dioxide 33 mmol/L (22-29); Chloride 97 mmol/L (98-107); Globulin 2.8 g/dL (1.3-4.6); Glucose 110 mg/dL (65-115); Magnesium 1.7 mg/dL (1.7-2.3); Osmolality Calculated 291 mOsm/kg (285-295); Potassium 3.1 mmol/L (3.5-5.1); Sodium 139 mmol/L (136-145); Total Bilirubin 0.8 mg/dL (0.15-1.2); Total Protein 5.9 g/dL (6.6-8.7)
[2023-05-18] MEDS: doxycycline 100 mg Tablet PO ×2 (08:32→17:25)
[2023-05-18] MEDS: finasteride 5 mg Tablet PO (08:32)
[2023-05-18] MEDS: tamsulosin 0.4 mg Capsule PO (08:32)
[2023-05-18] MEDS: clopidogrel 75 mg Tablet PO (08:33)
[2023-05-18] MEDS: famotidine 20 mg/2 mL INJ IVP ×2 (08:33→21:48)
[2023-05-18] MEDS: lisinopril 20 mg Tablet PO (08:33)
[2023-05-18] MEDS: FUROsemide 10 mg/mL SDV 2mL 20 MG IVP ×2 (11:36→13:29)
--- NOTE | 2023-05-18 13:20 | P.PN_ITS ---
Subjective Subjective: Yesterday evening patient was found to have extensive DVT affecting the right lower extremity and also bilateral PE. He had been started on full dose Lovenox with these findings. Echocardiogram showed additional evidence of right heart strain with pulmonary hypertension and an elevated PASP of 87 mmHg. He is appearing to be more tachypneic today, respiratory rate at the time of exam is 28 to 30 bpm. Medications: Reviewed: Yes Vitals/I&O/Wt Last Vital Signs Temp 98.0 F 05/18/23 12:00 Pulse 74 05/18/23 12:00 Resp 28 H 05/18/23 12:00 BP 158/77 05/18/23 12:00 Pulse Ox 93 05/18/23 12:00 O2 Del Method Room Air 05/18/23 12:00 05/17/23 05/18/23 05/18/23 22:59 06:59 14:59 Intake Total 600 / 840 500 / 1340 240 / 240 Output Total 575 / 1550 800 / 2350 Balance 25 / -710 -300 / -1010 240 / 240 Weight last 48 hrs Weight 102.875 kg Weight 108.409 kg Physical Exam Narrative: General: No acute distress, AO x3 HEENT: PERRLA, pupils bilaterally equal and reactive, pallors not present Chest: Tachypneic on exam respiratory rate around 30/min. Bilateral crackles on auscultation CVS: S1-S2 regular, no murmurs, no tachycardia, no gallops, no rubs Abdomen: Soft, nontender, no organomegaly, bowel sounds present Neuro: No focal deficits, no facial deformity, AO x3, power 5/5 in all limbs Extremities: Dark eschar with surrounding erythema over medial calf just below the knee. Overall unchanged in appearance. Right lower extremity more swollen compared to left, similar to last night's exam. Data 05/18/23 04:13 05/18/23 04:13 Micro: Microbiology 05/16/23 21:36 Blood Culture - Preliminary Blood NEGATIVE TO DATE 05/16/23 21:36 Blood Culture - Preliminary Blood NEGATIVE TO DATE Other data: May 17, 2023 Echocardiogram on CONCLUSIONS ?Normal left ventricular size and systolic function, EF 59 %. ?Moderate left ventricular hypertrophy. ?No regional wall motion abnormalities. ?Mild biatrial enlargementThickened aortic valve. Mild aortic ?valve regurgitation.? ?Mild aortic valve stenosis with a valve area of 2.2 cm squared. ?Severe pulmonary hypertension with an estimated pulmonary artery ?peak systolic pressure of 87 mmHg. ?Moderate tricuspid valve regurgitation. ?Trace pulmonary valve regurgitation. ?There is no pericardial effusion. ?There are no intracardiac masses. ?No similar previous studies are available for comparison May 17, 2023 CTA chest : CT/CT angio chest PE protcl [id number] IMPRESSION: 1. Bilateral pulmonary emboli. 2. RV/LV ratio of 1.3 likely indicates elevated right heart pressure. 3. Focal consolidation in the left lower lobe could represent atelectasis, pneumonia, or pulmonary infarction. 4. Small right and trace left pleural effusions.? May 17, 2023 : US/[place] [id number] IMPRESSION: 1. Occlusive deep vein thrombosis involving the right femoral, popliteal, peroneal, and posterior tibial veins. 2. No evidence for deep vein thrombosis in the left lower extremity.? A&P Assessment and plan (1) Pulmonary embolism: Patient presenting to the hospital with shortness of breath and lower extremity asymmetric swelling. Found to have occlusive right lower extremity DVT involving the right femoral- popliteal peroneal and posterior tibial veins and bilateral pulmonary embolism. He has been started on anticoagulation with Lovenox 1 mg/kg every 12 hours. Denies any significant pain, however noted to be tachypneic with respiratory rate of 30/min. (2) DVT (deep venous thrombosis): Right lower extremity DVT. Unclear duration of symptoms, per patient has been having increasing difficulty ambulating and has been using his cane for several months. Based on ultrasound appearance appears to be acute DVT, may have been precipitated by recent sedentary lifestyle. Patient also reports a tick bite over the right lower extremity which has been bothersome for him and has not been ambulating much as a result of it. Currently on anticoagulation as above (3) Severe pulmonary hypertension: Likely precipitated by right heart strain Noted to be more tachypneic today after reducing dose of Lasix and has interval development of crackles on exam. We will increase Lasix back to 40 mg IV every 12 hours Monitor intake and output closely Monitor renal function and electrolytes (4) Pulmonary infarction: As a result of PE. Area of focal consolidation is seen in the left Which could represent pneumonia versus pulmonary infarction. Given clinical picture would more likely resume this to be a pulmonary infarction however would continue prophylactic antibiotics as possibility of superadded pneumonia is not excluded as a complication. Start ceftriaxone 1 g IV every 24 hours. His low-grade fevers at home may be explained by pneumonia versus PE. (5) Tick bite: Tick bite wound to right lower extremity resolving, no active signs of infection seen. Local wound care with mupirocin Doxycycline 100 mg p.o. twice daily Suspect that delayed healing of this defect may additionally be related to underlying venous thromboembolism Plan Hypertension: Continue EUNICE inhibitors. Currently on lisinopril as his home dose of benazepril is not on formulary. We will add amlodipine 5 mg daily Hypokalemia: Likely related to diuresis; supplement with p.o. potassium today Attestations Medical Necessity Statement*: Needs continued admission for bilateral PE, acute right lower extremity DVT, pulmonary infarction versus pneumonia, need for IV diuresis for severe pulmonary hypertension, need for antibiotics Coding Level of Care Code Acute Code for Chg Fwd High MDM includes number and complexity of problems actively addressed during encounter, amount and/or complexity of data reviewed/ordered and described risk of complication, morbidity or mortality of management as documented Diagnoses Pulmonary embolism I26.99 DVT (deep venous thrombosis) I82.409 Severe pulmonary hypertension I27.20 Pulmonary infarction I26.99 Tick bite W57.XXXA
[2023-05-18] MEDS: potassium chloride ER 20 mEq Tablet 40 MEQ PO (13:29)
[2023-05-18 14:30] LABS: Lyme AB Screen <0.90 index
[2023-05-18] MEDS: cefTRIAXone 1,000 MG in sodium chloride 0.9% (plus) 50 ML 100 MG IV (14:37)
[2023-05-18] MEDS: amlodipine 5 mg Tablet PO (14:37)
[2023-05-18] MEDS: atorvastatin 40 mg Tablet PO (17:25)
[2023-05-18] MEDS: FUROsemide 10 mg/mL SDV 4mL 40 MG IVP (21:47)
[2023-05-19] VITALS (11 sets, daily range): BP systolic 141–173; BP diastolic 51–75; PULSE 70–88; RESP 16–34; TEMP 36.4–36.9; O2SAT 90–97
[2023-05-19 04:29] LABS: Basophils # 0.1 10^3/uL (0.0-0.1); Basophils % 0.6 %; Eosinophils # 0.1 10^3/uL (0.0-0.8); Eosinophils % 1.2 %; Hematocrit 37.9 % (37-53); Lymphocytes # 2.2 10^3/uL (0.8-4.8); Lymphocytes % 24.5 %; Mean Corpuscular HGB Conc 32.7 g/dL (30-55); Mean Corpuscular Hemoglobin 28.5 pg (27-33); Mean Corpuscular Volume 87.1 fl (82-101); Mean Platelet Volume 10.1 fL (7.4-10.4); Monocytes # 0.6 10^3/uL (0.2-0.9); Monocytes % 6.7 %; Neutrophils # 5.91 10^3/uL (1.8-7.7); Neutrophils % 66.4 %; Nucleated Red Blood Cells % 0 %; Platelet Count 216 10^3/cmm (157-399); Red Blood Count 4.35 10^6/uL (3.85-5.65); Red Cell Distribution Width 13.1 % (12.1-15.1)
[2023-05-19 04:46] LABS: Alanine Aminotransferase 42 U/L (0-41); Albumin Level 3.2 g/dL (3.5-5.2); Alkaline Phosphatase 64 U/L (40-130); Anion Gap 11.6 (5-19); Aspartate Amino Transferase 37 U/L (0-40); Blood Urea Nitrogen 21 mg/dL (8-23); Calcium 8.5 mg/dL (8.5-10.5); Carbon Dioxide 34 mmol/L (22-29); Chloride 95 mmol/L (98-107); Globulin 2.7 g/dL (1.3-4.6); Glucose 114 mg/dL (65-115); Magnesium 1.7 mg/dL (1.7-2.3); Osmolality Calculated 288 mOsm/kg (285-295); Potassium 3.6 mmol/L (3.5-5.1); Sodium 137 mmol/L (136-145); Total Bilirubin 0.6 mg/dL (0.15-1.2); Total Protein 5.9 g/dL (6.6-8.7)
[2023-05-19] MEDS: enoxaparin 100 mg/mL Syringe SUBCUT (05:24)
[2023-05-19] MEDS: amlodipine 5 mg Tablet PO (08:38)
[2023-05-19] MEDS: finasteride 5 mg Tablet PO (08:38)
[2023-05-19] MEDS: famotidine 20 mg/2 mL INJ IVP ×2 (08:38→20:13)
[2023-05-19] MEDS: clopidogrel 75 mg Tablet PO (08:38)
[2023-05-19] MEDS: lisinopril 20 mg Tablet PO (08:38)
[2023-05-19] MEDS: tamsulosin 0.4 mg Capsule PO (08:38)
[2023-05-19] MEDS: doxycycline 100 mg Tablet PO ×2 (08:38→17:49)
--- NOTE | 2023-05-19 08:48 | PC.SOCIAL ---
IMM Update pg 2 of IMM updated and reviewed w/ patient. Copy provided and copy dated, initialed and placed in chart.
[2023-05-19] MEDS: duloxetine 30 mg Capsule PO (12:35)
[2023-05-19] MEDS: cefTRIAXone 1,000 MG in sodium chloride 0.9% (plus) 50 ML 100 MG IV (12:35)
[2023-05-19] MEDS: FUROsemide 10 mg/mL SDV 4mL 40 MG IVP ×2 (12:35→23:27)
--- NOTE | 2023-05-19 14:10 | P.PN_ITS ---
Subjective Subjective: Patient states that his breathing is okay, however noted to be getting tachypneic in conversation. He is net -1.1 L. reports that patient has been depressed over the past several months. Medications: Reviewed: Yes Vitals/I&O/Wt Last Vital Signs Temp 97.9 F 05/19/23 11:46 Pulse 70 05/19/23 11:46 Resp 22 H 05/19/23 11:46 BP 155/66 05/19/23 11:46 Pulse Ox 90 05/19/23 11:46 O2 Del Method Room Air 05/19/23 11:46 05/18/23 05/19/23 05/19/23 22:59 06:59 14:59 Intake Total 50 / 530 300 / 830 650 / 650 Output Total 975 / 975 1150 / 2125 Balance -925 / -445 -850 / -1295 650 / 650 Weight last 48 hrs Weight 102.875 kg Physical Exam Narrative: General: No acute distress, AO x3 HEENT: PERRLA, pupils bilaterally equal and reactive, pallors not present Chest: Diminished breath sounds right infra axillary area CVS: S1-S2 regular, no murmurs, no tachycardia, no gallops, no rubs Abdomen: Soft, nontender, no organomegaly, bowel sounds present Neuro: No focal deficits, no facial deformity, AO x3, power 5/5 in all limbs Data 05/19/23 04:13 05/19/23 04:13 A&P Assessment and plan (1) Pulmonary embolism: Patient presenting to the hospital with shortness of breath and lower extremity asymmetric swelling. Found to have occlusive right lower extremity DVT involving the right femoral- popliteal peroneal and posterior tibial veins and bilateral pulmonary embolism. He has been started on anticoagulation with Lovenox 1 mg/kg every 12 hours. Denies any significant pain, however noted to be tachypneic with respiratory rate of 30/min, tires easily in conversation Overall he has been stable with saturations 90 to 92% on room air. We will transition Lovenox to p.o. Eliquis 10 mg twice daily today and assess if patient tolerates. (2) DVT (deep venous thrombosis): Right lower extremity DVT. Currently on anticoagulation as above (3) Severe pulmonary hypertension: Likely precipitated by right heart strain Continue Lasix 40 mg IV every 12 hours Net -1.1 L currently Monitor intake and output closely Monitor renal function and electrolytes (4) Pulmonary infarction: As a result of PE. Area of focal consolidation is seen in the left Which could represent pneumonia versus pulmonary infarction. contnue ceftriaxone 1 g IV every 24 hours. add spirometry and nebulization, suspect component of COPD though not formal PFTs available His low-grade fevers at home may be explained by pneumonia versus PE. (5) Tick bite: Tick bite wound to right lower extremity resolving, no active signs of infection seen. Local wound care with mupirocin Doxycycline 100 mg p.o. twice daily Suspect that delayed healing of this defect may additionally be related to underlying venous thromboembolism Plan Hypertension: Continue EUNICE inhibitors. continue amlodipine 5 mg daily. Bp better controlled today Hypokalemia: normal today Attestations Medical Necessity Statement*: continued need for iv diuresis, iv abx, change lovenox to eliquis and monitor for any clinical deterioration Coding Level of Care Code Acute Code for [facility] Diagnoses Pulmonary embolism I26.99 DVT (deep venous thrombosis) I82.409 Severe pulmonary hypertension I27.20 Pulmonary infarction I26.99 Tick bite [id number].XXXA
[2023-05-19] MEDS: atorvastatin 40 mg Tablet PO (17:49)
[2023-05-19] MEDS: apixaban 5 mg Tablet 10 MG PO (20:13)
[2023-05-19] MEDS: ipratropium-albuterol 3 mL Neb INHALATION (20:30)
[2023-05-20] VITALS (10 sets, daily range): BP systolic 118–159; BP diastolic 58–84; PULSE 65–90; RESP 17–22; TEMP 36.4–36.8; O2SAT 90–97
--- NOTE | 2023-05-20 04:00 | XRR_ITS ---
PROCEDURE INFORMATION: Exam: XR Chest Exam date and time: 05/20/2023 5:59 AM Age: 86 years old Clinical indication: Patient HX: F/u for pneumonia; Additional info: Follow up pleural effusions, interval pneumonia TECHNIQUE: Imaging protocol: Radiologic exam of the chest. Views: 1 view. COMPARISON: CR (CHEST, ) 05/16/2023 9:26 PM FINDINGS: Lungs: Subtle retrocardiac airspace opacity Pleural spaces: Small pleural effusions Heart/Mediastinum: Cardiomegaly. Bones/joints: Unremarkable. XR/XR chest 1V portable [id number] IMPRESSION: 1. Subtle retrocardiac airspace opacity which may represent pneumonia. Small pleural effusions. 2. Cardiomegaly
[2023-05-20 04:08] LABS: Basophils % 0.4 %; Eosinophils # 0.1 10^3/uL (0.0-0.8); Eosinophils % 1.3 %; Hematocrit 39.7 % (37-53); Lymphocytes # 2.3 10^3/uL (0.8-4.8); Lymphocytes % 25.5 %; Mean Corpuscular HGB Conc 32.7 g/dL (30-55); Mean Corpuscular Hemoglobin 28.7 pg (27-33); Mean Corpuscular Volume 87.6 fl (82-101); Mean Platelet Volume 9.9 fL (7.4-10.4); Monocytes # 0.6 10^3/uL (0.2-0.9); Monocytes % 6.4 %; Neutrophils # 6.03 10^3/uL (1.8-7.7); Nucleated Red Blood Cells % 0 %; Platelet Count 256 10^3/cmm (157-399); Red Blood Count 4.53 10^6/uL (3.85-5.65); Red Cell Distribution Width 13.2 % (12.1-15.1); White Blood Count 9.16 10^3/uL (3.29-11.43)
[2023-05-20 04:31] LABS: Alanine Aminotransferase 52 U/L (0-41); Albumin Level 3.1 g/dL (3.5-5.2); Alkaline Phosphatase 68 U/L (40-130); Anion Gap 13.6 (5-19); Aspartate Amino Transferase 50 U/L (0-40); Blood Urea Nitrogen 22 mg/dL (8-23); Calcium 8.6 mg/dL (8.5-10.5); Carbon Dioxide 33 mmol/L (22-29); Chloride 96 mmol/L (98-107); Globulin 3.4 g/dL (1.3-4.6); Glucose 112 mg/dL (65-115); Osmolality Calculated 292 mOsm/kg (285-295); Potassium 3.6 mmol/L (3.5-5.1); Sodium 139 mmol/L (136-145); Total Bilirubin 0.7 mg/dL (0.15-1.2); Total Protein 6.5 g/dL (6.6-8.7)
[2023-05-20] MEDS: doxycycline 100 mg Tablet PO ×2 (08:32→17:42)
[2023-05-20] MEDS: tamsulosin 0.4 mg Capsule PO (08:32)
[2023-05-20] MEDS: clopidogrel 75 mg Tablet PO (08:32)
[2023-05-20] MEDS: lisinopril 20 mg Tablet PO (08:32)
[2023-05-20] MEDS: apixaban 5 mg Tablet 10 MG PO ×2 (08:32→20:41)
[2023-05-20] MEDS: duloxetine 30 mg Capsule PO (08:32)
[2023-05-20] MEDS: amlodipine 10 mg Tablet PO (08:32)
[2023-05-20] MEDS: finasteride 5 mg Tablet PO (08:32)
[2023-05-20] MEDS: FUROsemide 10 mg/mL SDV 4mL 40 MG IVP (11:19)
--- NOTE | 2023-05-20 17:29 | P.PN_ITS ---
Subjective Subjective: patient is breathing easier today. Less tachypneic in conversation. Tolerating the transition to oral Eliquis. Medications: Reviewed: Yes Vitals/I&O/Wt Last Vital Signs Temp 98.2 F 05/20/23 09:03 Pulse 76 05/20/23 13:51 Resp 17 05/20/23 13:51 BP 118/58 05/20/23 16:20 Pulse Ox 93 05/20/23 16:20 O2 Del Method Room Air 05/20/23 09:16 05/20/23 05/20/23 05/20/23 06:59 14:59 22:59 Intake Total 240 / 240 Output Total 500 / 1200 Balance -500 / -310 240 / 240 Physical Exam Narrative: General: No acute distress, AO x3 HEENT: PERRLA, pupils bilaterally equal and reactive, pallors not present Chest: Diminished breath sounds right infra axillary area CVS: S1-S2 regular, no murmurs, no tachycardia, no gallops, no rubs Abdomen: Soft, nontender, no organomegaly, bowel sounds present Neuro: No focal deficits, no facial deformity, AO x3, power 5/5 in all limbs Data 05/20/23 03:29 05/20/23 03:29 A&P Assessment and plan (1) Pulmonary embolism: Patient presenting to the hospital with shortness of breath and lower extremity asymmetric swelling. Found to have occlusive right lower extremity DVT involving the right femoral- popliteal peroneal and posterior tibial veins and bilateral pulmonary embolism. He has been started on anticoagulation with Lovenox 1 mg/kg every 12 hours. Denies any significant pain, however noted to be tachypneic with respiratory rate of 30/min. (2) DVT (deep venous thrombosis): Right lower extremity DVT. Unclear duration of symptoms, per patient has been having increasing diffi culty ambulating and has been using his cane for several months. Based on ultrasound appearance appears to be acute DVT, may have been precipitated by recent sedentary lifestyle. Patient also reports a tick bite over the right lower extremity which has been bothersome for him and has not been ambulating much as a result of it. Currently on anticoagulation as above (3) Severe pulmonary hypertension: Likely precipitated by right heart strain Noted to be more tachypneic today after reducing dose of Lasix and has interval development of crackles on exam. We will increase Lasix back to 40 mg IV every 12 hours Monitor intake and output closely Monitor renal function and electrolytes (4) Pulmonary infarction: As a result of PE. Area of focal consolidation is seen in the left Which could represent pneumonia versus pulmonary infarction. Given clinical picture would more likely resume this to be a pulmonary infarction however would continue prophylactic antibiotics as possibility of superadded pneumonia is not excluded as a complication. Start ceftriaxone 1 g IV every 24 hours. His low-grade fevers at home may be explained by pneumonia versus PE. (5) Tick bite: Tick bite wound to right lower extremity resolving, no active signs of infection seen. Local wound care with mupirocin Doxycycline 100 mg p.o. twice daily Suspect that delayed healing of this defect may additionally be related to underlying venous thromboembolism Plan Hypertension: Continue EUNICE inhibitors. Currently on lisinopril as his home dose of benazepril is not on formulary. We will add amlodipine 5 mg daily Hypokalemia: Likely related to diuresis; supplement with p.o. potassium today Plan for today: Transition IV to p.o. diuretics and assess for clinical stability. If tolerates transition to oral anticoagulation and oral diuretics over the next 24 hours anticipate discharge home. Attestations Medical Necessity Statement*: Transition IV to oral diuretics and assess for clinical stability Coding Level of Care Code Acute Code for [facility] Diagnoses Pulmonary embolism I26.99 DVT (deep venous thrombosis) I82.409 Severe pulmonary hypertension I27.20 Pulmonary infarction I26.99 Tick bite W57.XXXA
[2023-05-20] MEDS: atorvastatin 40 mg Tablet PO (17:42)
[2023-05-20] MEDS: FUROsemide 40 mg Tablet 60 MG PO (18:07)
[2023-05-20] MEDS: famotidine 20 mg/2 mL INJ IVP (20:41)
[2023-05-21] VITALS: BP 146/69; PULSE 73; RESP 26; TEMP 36.6; O2SAT 94
[2023-05-21 04:00] VITALS: BP 154/74; PULSE 79; RESP 22; TEMP 36.5; O2SAT 91
[2023-05-21 05:54] VITALS: PULSE 71
[2023-05-21 08:00] VITALS: BP 158/69; PULSE 69; PULSE 80; RESP 17; RESP 30; TEMP 36.4; O2SAT 100
[2023-05-21] MEDS: tamsulosin 0.4 mg Capsule PO (08:15)
[2023-05-21] MEDS: FUROsemide 40 mg Tablet 60 MG PO (08:15)
[2023-05-21] MEDS: finasteride 5 mg Tablet PO (08:16)
[2023-05-21] MEDS: amlodipine 10 mg Tablet PO (08:16)
[2023-05-21] MEDS: doxycycline 100 mg Tablet PO (08:16)
[2023-05-21] MEDS: apixaban 5 mg Tablet 10 MG PO (08:16)
[2023-05-21] MEDS: lisinopril 20 mg Tablet PO (08:16)
[2023-05-21] MEDS: duloxetine 30 mg Capsule PO (08:16)
[2023-05-21] MEDS: famotidine 20 mg/2 mL INJ IVP (08:16)
[2023-05-21] MEDS: clopidogrel 75 mg Tablet PO (08:16)
--- NOTE | 2023-05-21 08:53 | PC.SOCIAL ---
IMM update IMM updated with patient. Verbalized an understanding. Copy pg 2 provided. Initialled, dated, timed, and placed in chart.
[2023-05-21 12:00] VITALS: BP 145/71; PULSE 81; RESP 27; TEMP 36.7
[2023-05-21 12:01] VITALS: BP 158/69; PULSE 80; RESP 17; TEMP 36.4; O2SAT 100
--- NOTE | 2023-05-21 13:36 | PM.DCS ---
Discharge Providers Date of Admission: 05/16/23 23:13 Date of Discharge: May 21, 2023 Attending Provider at Admission: Rica Benedict MD Attending Provider at Discharge: Yuko Woodson MD Primary Care Provider: Geremias Kramer Diagnoses at Discharge Discharge Diagnosis (1) Pulmonary embolism: Status: Acute (2) DVT (deep venous thrombosis): Status: Acute (3) Severe pulmonary hypertension: Status: Acute (4) Pulmonary infarction: Status: Acute (5) Tick bite: Status: Acute Reason for Visit Reason for Visit: fever Brief History: 86-year-old male who presented to the hospital with shortness of breath worsening over the past 2 to 3 weeks and asymmetric lower extremity swelling. Hospital course as below.: (1) Pulmonary embolism: Patient presenting to the hospital with shortness of breath and lower extremity asymmetric swelling. Found to have occlusive right lower extremity DVT involving the right femoral-popliteal peroneal and posterior tibial veins and bilateral pulmonary embolism. He was started on anticoagulation with Lovenox 1 mg/kg every 12 hours, transition to Eliquis at the time of discharge. He is instructed to take 10 mg twice daily for the first 7 days and then drop dose to 5 mg twice a day. Minimal anticoagulation for 3 months. Follow-up with primary care provider (2) DVT (deep venous thrombosis): Right lower extremity DVT. Unclear duration of symptoms, per patient has been having increasing difficulty ambulating and has been using his cane for several months.? Based on ultrasound appearance appears to be acute DVT, may have been precipitated by recent sedentary lifestyle. Patient also reports a tick bite over the right lower extremity which has been bothersome for him and has not been ambulating much as a result of it. Currently on anticoagulation as above (3) Severe pulmonary hypertension: Likely precipitated by right heart strain Noted to be more tachypneic during initial part of the hospitalization He was started on IV diuresis with Lasix and has been transitioned to Lasix 60 mg p.o. twice daily at the time of discharge. Patient is net negative at the time of discharge. Follow-up with primary care physician in 1 week's dose of Lasix may need to be titrated based on his clinical recovery and response (4) Pulmonary infarction: As a result of PE. Area of focal consolidation is seen in the left Which could represent pneumonia versus pulmonary infarction.? Given clinical picture would more likely pulmonary infarction however would continue prophylactic antibiotics as possibility of superadded pneumonia is not excluded as a complication.? He received ceftriaxone IV in the hospital, this has been transitioned to Augmentin at the time of discharg (5) Tick bite: Tick bite wound to right lower extremity resolving, no active signs of infection seen.? Local wound care with mupirocin. Patient had a mild fever initially upon admission for which she was started and is continued on Doxycycline 100 mg p.o. twice daily to complete 7 days Suspect that delayed healing of this defect may additionally be related to underlying venous thromboembolism (6) depression: Patient's and family reports the patient has been depressed over the past several months. During the hospital admission on several occasions he made comments such as I am old ingredient still here , when told that he would need anticoagulation for 3 months he stated I may not be here that long . He is not actively suicidal, just thinks he is old and that his time is near. Discussed with him starting a low-dose of SSRI which could help with depression and also his pain. He is agreeable to a trial of the same therefore we have started duloxetine. Physical Exam Narrative: General: No acute distress, AO x3 HEENT: PERRLA, pupils bilaterally equal and reactive, pallors not present Chest: Normal vesicular breath sounds, no added sounds, equal good air entry bilaterally CVS: S1-S2 regular, no murmurs, no tachycardia, no gallops, no rubs Abdomen: Soft, nontender, no organomegaly, bowel sounds present Neuro: No focal deficits, no facial deformity, AO x3, power 5/5 in all limbs Extremities: RLE pitting edema Discharge Data Studies Completed and Pending Completed Studies During Hospitalization Category Date Time Status CTA PE [CT angio chest PE protcl [id number]] Urgent Cat Scan 05/17/23 17:43 Completed CXRP [XR chest 1V portable [id number]] AM LABS Exams 05/20/23 04:00 Completed XR chest 1V portable [id number] Stat Exams 05/16/23 21:21 [place] [id number] Routine Ultrasound 05/17/23 16:32 Completed CV. echo complete* [id number] Routine Ultrasound 05/17/23 16:32 Completed Pending at discharge Category Date Time Status CA echo doppler complete Routine Exams 05/17/23 00:06 Stop Req Blood Culture Stat Lab 05/16/23 21:36 Results Tick Panel Stat Lab 05/16/23 21:36 Results Radiology Impressions Venous Duplex 05/17/23 16:32 IMPRESSION: 1. Occlusive deep vein thrombosis involving the right femoral, popliteal, peroneal, and posterior tibial veins. 2. No evidence for deep vein thrombosis in the left lower extremity. ADDENDUM: 05/17/23 1809 THIS REPORT CONTAINS FINDINGS THAT MAY BE CRITICAL TO PATIENT CARE. The findings were verbally communicated via telephone conference with YUKO WOODSON at 6:07 PM CDT on 05/17/2023. The findings were acknowledged and understood. Chest CTA 05/17/23 17:43 IMPRESSION: 1. Bilateral pulmonary emboli. 2. RV/LV ratio of 1.3 likely indicates elevated right heart pressure. 3. Focal consolidation in the left lower lobe could represent atelectasis, pneumonia, or pulmonary infarction. 4. Small right and trace left pleural effusions. ADDENDUM: 05/17/23 193 THIS REPORT CONTAINS FINDINGS THAT MAY BE CRITICAL TO PATIENT CARE. The findings were verbally communicated via telephone conference with Dr. Garcia at 7:29 PM CDT on 05/17/2023. The findings were acknowledged and understood. Chest X-Ray 05/20/23 04:00 IMPRESSION: 1. Subtle retrocardiac airspace opacity which may represent pneumonia. Small pleural effusions. 2. Cardiomegaly Laboratory Results WBC 9.16 10^3/uL (3.29-11.43) 05/20/23 03:29 RBC 4.53 10^6/uL (3.85-5.65) 05/20/23 03:29 Hgb 13.00 g/dL (11.27-16.99) 05/20/23 03:29 Hct 39.7 % (37-53) 05/20/23 03:29 MCV 87.6 fl (82-101) 05/20/23 03:29 MCH 28.7 pg (27-33) 05/20/23 03:29 MCHC 32.7 g/dL (30-55) 05/20/23 03:29 RDW 13.2 % (12.1-15.1) 05/20/23 03:29 Plt Count 256 10^3/cmm (157-399) 05/20/23 03:29 MPV 9.9 fL (7.4-10.4) 05/20/23 03:29 Neut % (Auto) 66.0 % 05/20/23 03:29 Lymph % (Auto) 25.5 % 05/20/23 03:29 [place] % (Auto) 6.4 % 05/20/23 03:29 Eos % (Auto) 1.3 % 05/20/23 03:29 Baso % (Auto) 0.4 % 05/20/23 03:29 Neut # (Auto) 6.03 10^3/uL (1.8-7.7) 05/20/23 03:29 Lymph # (Auto) 2.3 10^3/uL (0.8-4.8) 05/20/23 03:29 [place] # (Auto) 0.6 10^3/uL (0.2-0.9) 05/20/23 03:29 Eos # (Auto) 0.1 10^3/uL (0.0-0.8) 05/20/23 03:29 Baso # (Auto) 0.0 10^3/uL (0.0-0.1) 05/20/23 03:29 Nucleated RBC % (auto) 0 % 05/20/23 03: Nucleated RBCs # 0.0 /100WBC 05/20/23 03:29 Sodium 139 mmol/L (136-145) 05/20/23 03:29 Potassium 3.6 mmol/L (3.5-5.1) 05/20/23 03:29 Chloride 96 mmol/L (98-107) L 05/20/23 03:29 Carbon Dioxide 33 mmol/L (22-29) H 05/20/23 03:29 Anion Gap 13.6 (5-19) 05/20/23 03:29 BUN 22 mg/dL (8-23) 05/20/23 03:29 Creatinine 0.9 mg/dL (0.7-1.2) 05/20/23 03:29 GFR Calculation Not Reportable 05/20/23 03:29 Glucose 112 mg/dL (65-115) 05/20/23 03:29 Calculated Osmolality 292 mOsm/kg (285-295) 05/20/23 03:29 Lactic Acid 1.0 mmol/L (0.5-2.2) 05/16/23 21:36 Calcium 8.6 mg/dL (8.5-10.5) 05/20/23 03:29 Magnesium 1.7 mg/dL (1.7-2.3) 05/19/23 04:13 Total Bilirubin 0.7 mg/dL (0.15-1.2) 05/20/23 03:29 AST 50 U/L (0-40) H 05/20/23 03:29 ALT 52 U/L (0-41) H 05/20/23 03:29 Alkaline Phosphatase 68 U/L (40-130) 05/20/23 03:29 NT-Pro-B Natriuret Pep 2729 pg/mL (0-450) H 05/17/23 03:28 Total Protein 6.5 g/dL (6.6-8.7) L 05/20/23 03:29 Albumin 3.1 g/dL (3.5-5.2) L 05/20/23 03:29 Globulin 3.4 g/dL (1.3-4.6) 05/20/23 03:29 Urine Color Yellow (Yellow) 05/16/23 22:13 Urine Appearance Sl hazy (CLEAR) A 05/16/23 22:13 Urine pH 5 (5-7) 05/16/23 22:13 Ur Specific [place] 1.020 (1.005-1.030) 05/16/23 22:13 Urine Protein Trace (Negative) 05/16/23 22:13 Urine Glucose (UA) Norm (Normal) 05/16/23 22:13 Urine Ketones Negative (Negative) 05/16/23 22:13 Urine Blood Neg (Negative) 05/16/23 22:13 Urine Nitrate Negative (Negative) 05/16/23 22:13 Urine Bilirubin Neg (Negative) 05/16/23 22:13 Urine Urobilinogen 1 mg/dL (Negative) H 05/16/23 22:13 Ur Leukocyte Esterase Negative (Negative) 05/16/23 22:13 Urine RBC None /hpf (0-2) 05/16/23 22:13 Urine WBC None /hpf (0-5) 05/16/23 22:13 Ur Squamous Epith Cells None /hpf (0-5) 05/16/23 22:13 Amorphous Sediment 2+ /hpf 05/16/23 22:13 Urine Bacteria Trace /hpf (NONE) 05/16/23 22:13 Urine Mucus 2+ /hpf 05/16/23 22:13 Lyme Ab (Western Blot) <0.90 index 05/16/23 21:36 SARS-CoV-2 Ag (Rapid) negative (Negative) 05/16/23 21:53 Vitals Last Vital Signs Temp 97.6 F 05/21/23 12:01 Pulse 80 05/21/23 12:01 Resp 17 05/21/23 12:01 BP 158/69 05/21/23 12:01 Pulse Ox 100 05/21/23 12:01 O2 Del Method Room Air 05/21/23 08:00 Discharge Plan Discharge Patient Disposition: Home Health Service Condition: Stable Prescriptions: New Eliquis 5 mg Tablet 5 mg PO BID@0900,2100 90 Days Qty: 180 0RF Rx Instructions: take 10mg BID for 4 days,then reduce dose to 5 mg BID furosemide 40 mg Tablet 60 mg PO BID@08,16 15 Days Qty: 45 0RF doxycycline monohydrate 100 mg Tablet 100 mg PO BID 4 Days Qty: 8 0RF duloxetine 30 mg Capsule,Delayed Release(Dr/Ec) 30 mg PO DAILY 30 Days Qty: 30 0RF Wixela Inhub 500-50 mcg/dose blister with device 1 inh inhalation BID 30 Days Qty: 60 0RF amoxicillin-pot clavulanate 875-125 mg tablet 1 tab PO BID 4 Days Qty: 8 0RF Continued benazepril 40 mg tablet 40 mg PO DAILY clopidogrel 75 mg tablet 75 mg PO DAILY finasteride 5 mg tablet 5 mg PO DAILY rosuvastatin 10 mg tablet 10 mg PO DAILY tamsulosin 0.4 mg capsule 0.4 mg PO DAILY Discharge Orders: Discharge Order (Routine); Ordered 05/21/23 Ordered By: Yuko Woodson Referrals: [facility] ([facility]) [Outside] Geremias Kramer [Primary Care Provider] - 4-7 days (Please call for an follow-up appointment with 4 to 7 days. ) Discharge Diet: Usual diet Discharge Activity: Increase activity as tolerated Patient Instructions: Furosemide (By mouth) (Lasix), Doxycycline (By mouth) (Acticlate, Adoxa, Avidoxy, Monodox, Doryx), Amoxicillin/Clavulanate Potassium (By mouth) (Augmentin, Augmentin..., Fluticasone/Salmeterol (By breathing) (Advair Diskus 100/50, Advair..., Duloxetine (By mouth) (Cymbalta, Irenka, Drizalma Sprinkle), Apixaban (By mouth) (Eliquis), Pulmonary Embolism (DC), Cellulitis (GEN), Tick Bite (GEN), Deep Vein Thrombosis (DC), Opioid Safety Discharge Attestations Time Spent in Discharge Care*: greater than 30 min Quality Metrics Clinical Quality Measures [ No reported AMI, CVA or VTE this stay] Coding Level of Care Code Acute Code for Chg Fwd Total time (in minutes) for Discharge: 45 Diagnoses Pulmonary embolism I26.99 DVT (deep venous thrombosis) I82.409 Severe pulmonary hypertension I27.20 Pulmonary infarction I26.99 Tick bite W57.XXXA
--- NOTE | 2023-05-21 13:52 | PC.NURSE ---
Discharge Note Patient discharged to [home] via [w/c to POV] accompanied by [family]. Discharge instructions reviewed with patient and/or software support representative. Mobile pharmacy medications and/or prescriptions provided. Belongings/home medications returned.
[2023-05-22 17:19] LABS: E. Chaffeensis AB IGG <1:64; E. Chaffeensis AB IGM <1:20
[2023-05-23 16:14] LABS: RMSF IGG NOT DETECTED; RMSF IGM NOT DETECTED
== END 2023-05-21 13:40 | disposition home health service (06) | DRG 299 ==
LOC: ER 22:39 → CSU 23:58
PROVIDERS: Admitting Provider Internal Medicine; Emergency Provider Emergency Medicine; PCP Family Medicine; Visit Provider Student in an Organized Health Care Education/Training Program
DX: I82.411 Acute embolism and thrombosis of right femoral vein (principal); I26.99 Other pulmonary embolism without acute cor pulmonale; I82.431 Acute embolism and thrombosis of right popliteal vein; I82.451 Acute embolism and thrombosis of right peroneal vein; I27.20 Pulmonary hypertension, unspecified; S80.861A Insect bite (nonvenomous), right lower leg, initial encounter; F32.A Depression, unspecified; Z79.02 Long term (current) use of antithrombotics/antiplatelets; I10 Essential (primary) hypertension; E78.5 Hyperlipidemia, unspecified; N40.0 Benign prostatic hyperplasia without lower urinary tract symptoms; G47.33 Obstructive sleep apnea (adult) (pediatric); Z99.89 Dependence on other enabling machines and devices; Z91.199 Patient's noncompliance with other medical treatment and regimen due to unspecified reason; E87.70 Fluid overload, unspecified; G89.29 Other chronic pain; E87.6 Hypokalemia; W57.XXXA Bitten or stung by nonvenomous insect and other nonvenomous arthropods, initial encounter
CPT/HCPCS: 36415; 71045; 71275; 80053; 81001; 83605; 83735; 83880; 85025; 86618; 86666; 86757; 87040; 87426; 93005; 93306; 93970; 94640; 94664; 96365; 96367; 96372; 96375; 96376; 97110; 97161; 97530; 99285; A9270; J0696; J1650; J1940; J2543; J3370; J3490; J7050; Q9967

== ENCOUNTER 2024-11-08 21:49 | Emergency (ER) | payer MEDICARE, SELFPAY ==
[2024-11-08 21:49] VITALS: BP 151/103; PULSE 76; RESP 27; TEMP 36.6; O2SAT 98; BMI 27.1
--- NOTE | 2024-11-08 21:50 | ECG_ITS ---
[employer] 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 Measurements Intervals [place] Rate: 70 P: 41 MO: 194 QRS: 15 QRSD: 89 T: 47 QT: 389 QTc: 422 Interpretive Statements SINUS RHYTHM WITH FREQUENT VENTRICULAR PREMATURE COMPLEXES IN A BIGEMINAL PATTERN POSSIBLE RIGHT VENTRICULAR CONDUCTION DELAY [RSR (QR) IN V1/V2] SEPTAL MYOCARDIAL INFARCTION , PROBABLY OLD [40+ ms Q WAVE IN V1/V2] Compared to ECG 05/17/2023 00:18:06 Ventricular premature complex(es) now present Myocardial infarct finding now present Electronically Signed On 11-10-2024 12:39:23 MOTION PICTURE PROJECTIONIST APPRENTICE by Angie Gomez M.D. [email or web address] [id number]
--- NOTE | 2024-11-08 22:17 | XRR_ITS ---
PROCEDURE INFORMATION: Exam: XR Chest Exam date and time: 11/08/2024 10:22 PM Age: 88 years old Clinical indication: Shortness of breath and other: Bradycardia; EMS arrival for SOB with bradycardia; Additional info: SOB, low hr TECHNIQUE: Imaging protocol: Radiologic exam of the chest. Views: 1 view. COMPARISON: CR (CHEST, ) 05/20/2023 5:59 AM FINDINGS: Lungs: Mild left retrocardiac opacity. Pleural spaces: Unremarkable. No pleural effusion. No pneumothorax. Heart/Mediastinum: Unremarkable. No cardiomegaly. Bones/joints: Unremarkable. XR/XR chest 1V portable [id number] IMPRESSION: Mild left retrocardiac opacity, which may represent focal consolidation.
[2024-11-08 22:24] LABS: Basophils % 0.5 %; Eosinophils # 0.1 10^3/uL (0.0-0.8); Hematocrit 38.7 % (37-53); Lymphocytes % 32.1 %; Mean Corpuscular Hemoglobin 28.4 pg (27-33); Mean Corpuscular Volume 88.6 fl (82-101); Monocytes # 0.5 10^3/uL (0.2-0.9); Monocytes % 8.4 %; Neutrophils # 3.51 10^3/uL (1.8-7.7); Neutrophils % 57.7 %; Nucleated Red Blood Cells % 0 %; Platelet Count 145 10^3/cmm (157-399); Red Blood Count 4.37 10^6/uL (3.85-5.65); Red Cell Distribution Width 14.7 % (12.1-15.1); White Blood Count 6.08 10^3/uL (3.29-11.43)
[2024-11-08 22:40] LABS: Troponin(5th) Baseline 25 ng/L (0-15)
[2024-11-08 22:41] LABS: Alanine Aminotransferase 8 U/L (0-41); Albumin Level 3.7 g/dL (3.5-5.2); Alkaline Phosphatase 52 U/L (40-130); Anion Gap 12.6 (5-19); Aspartate Amino Transferase 14 U/L (0-40); Blood Urea Nitrogen 19 mg/dL (8-23); Calcium 8.5 mg/dL (8.5-10.5); Carbon Dioxide 27 mmol/L (22-29); Chloride 103 mmol/L (98-107); Creatinine Clr Calc Pharmacy 54.3946; Globulin 2.2 g/dL (1.3-4.6); Glucose 126 mg/dL (65-115); Osmolality Calculated 292 mOsm/kg (285-295); Potassium 3.6 mmol/L (3.5-5.1); Sodium 139 mmol/L (136-145); Total Bilirubin 0.4 mg/dL (0.15-1.2); Total Protein 5.9 g/dL (6.6-8.7)
[2024-11-08 22:48] LABS: NT Pro B Type Natriuretic Pept 1094 pg/mL (0-450)
--- NOTE | 2024-11-08 23:46 | W.ED.SOB ---
HPI - SOB/Dyspnea General: Chief Complaint: Shortness of Breath/Dyspnea Stated Complaint: LOW HR Time Seen by Provider: 11/08/24 22:02 History of Present Illness: HPI Narrative: 88-year-old male presents emergency department along with his granddaughter and granddaughter's boyfriend. The patient has been experiencing dyspnea with exertion for a long time. He also coughs when he lays down at night. The granddaughter's boyfriend used a pulse oximeter to check his oxygen level. It reported that his heart rate was low. On arrival he is in a bigeminy. His rate here is 70 bpm but the bigeminal beat has a very weak pulse associated with it. Therefore his effective heart rate is relatively low. It is unclear how long this has been going on. His respiratory rate on arrival was recorded at 27 but during my conversation with him he has a normal work of breathing. Family says it depends on his exertion level. I did a chart review as the patient is an extremely poor historian and is also nearly deaf. The family does not know anything about his medications or health history. It looks like in 2022 he was seen for cellulitis. He developed a DVT in that leg and actually had pulmonary emboli. At 1 point in time he was on Eliquis but is no longer taking it. The patient does not have any lower extremity edema pain swelling or redness. He does not have any chest pain. In fact, the patient was asymptomatic when they discovered his heart rate was low. 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 He has not had any fever or chills. He does snore a lot at night. They do not know if he has sleep apnea. Associated symptoms: Deny abdominal pain, chest pain, extremity pain, fever(s), nausea, syncope or vomiting Related Data Home Medications ?Medication ?Instructions ?Recorded ?Confirmed benazepril 40 mg tablet 40 mg PO DAILY 05/16/23 05/16/23 finasteride 5 mg tablet 5 mg PO DAILY 05/16/23 05/16/23 rosuvastatin 10 mg tablet 10 mg PO DAILY 05/16/23 05/16/23 tamsulosin 0.4 mg capsule 0.4 mg PO DAILY 05/16/23 05/16/23 Previous Rx's ?Medication ?Instructions ?Recorded aspirin 81 mg capsule 81 mg PO DAILY #30 caps 11/08/24 furosemide 20 mg tablet 20 mg PO QAM #14 tabs 11/08/24 metoprolol tartrate 25 mg tablet 12.5 mg (1/2 x 25 mg) PO BID #30 11/08/24 tabs Allergies Allergy/AdvReac Type Severity Reaction Status Date / Time No Known Allergies Allergy Verified 05/16/23 21:31 Review of Systems General: Reports: 10 or more systems reviewed and unremarkable except in HPI and below Narrative: Patient has an irregular rhythm. When feeling his pulse, you can hardly feel the bigeminal beat. The initial beat is strong. He does not have any JVD and he does not have any lower extremity edema. His lungs are clear. His respiratory rate is normal during my history and exam. The patient is essentially deaf and cannot hear well even with very loud speaking. Fortunately his family is there to help. Const: Denies: fever(s), chills or body aches Eyes: Denies: change in vision ENMT: Denies: throat pain Card: Denies: chest pain, edema or syncope GI: Denies: abdominal pain, nausea, vomiting or diarrhea : Denies: flank pain, dysuria or urinary frequency Musc: Denies: neck pain, back pain, extremity pain or extremity swelling Skin/Breast: Denies: rash or erythema Neuro: Denies: headache(s), numbness in extremities, weakness in extremities, lack of coordination or difficulty walking Physical Exam Const: COMMON NORMALS: alert and well nourished EXAM LIMITATIONS: no altered mental status HENMT: COMMON NORMALS: normocephalic, atraumatic and external ears normal HEAD & SCALP: normocephalic and atraumatic EXTERNAL EAR: Yes external ears normal MOUTH: no muffled voice Eye: COMMON NORMALS: conjunctivae normal and no scleral icterus CONJUNCTIVA: Yes conjunctivae normal Neck/C-Spine: COMMON NORMALS: no JVD GENERAL: Yes normal visual inspection and Yes trachea midline Resp: COMMON NORMALS: normal respiratory effort, No use of accessory muscles and clear to auscultation bilaterally AUSCULTATION: clear to auscultation bilaterally Cardio: COMMON NORMALS: no JVD and regular rate RATE: regular rate GI: COMMON NORMALS: Soft to palpation and non-tender PALPATION: Yes Soft to palpation and No Guarding due to palpation present (GI) Extremity: COMMON NORMALS: normal to inspection Neuro: COMMON NORMALS: moves all extremities, no focal motor deficits and no sensory deficits noted SENSORIUM/ORIENTATION: Yes alert SPEECH: speech normal Psych: COMMON NORMALS: mental status grossly normal, Normal thought process present, cooperative, normal affect and speech normal SPEECH: Yes normal speech THOUGHT PROCESS: Normal thought process present Skin: COMMON NORMALS: no rashes or lesions noted, turgor normal and no jaundice GENERAL SKIN EXAM: no rashes or lesions noted and turgor normal Course Vital Signs: Vital signs: Vital Signs Temperature 97.8 F 11/08/24 21:49 Pulse Rate 76 11/08/24 21:49 Respiratory Rate 27 H 11/08/24 21:49 Blood Pressure 151/103 11/08/24 21:49 Pulse Oximetry 98 11/08/24 21:49 MDM - SOB/Dyspnea Medical Decision Making Sounds like the patient is having chronic progressive dyspnea with exertion, loud snoring at night, and has been essentially lost to follow-up. He is not experiencing any fever, chills, runny nose, congestion or any acute infectious symptoms. In the past he had cellulitis that led to a DVT and a PE. This was years ago. He is no longer on Eliquis. I am not seeing any evidence of cellulitis or DVT today. During my examination he has bigeminy which explains why the pulse oximeter was only picking up half of his normal beats. Laboratory workup was performed. Hemoglobin and platelets were reviewed. Platelets are mildly low but hemoglobin is normal. There is no evidence of any infection on lab analysis. Electrolytes are okay. Creatinine is 1.1. Bicarb is 27 which is normal. Patient's chest x-ray shows cardiomegaly. There is a questionable left retrocardiac opacity. After carefully screening the patient, I do not think this is clinically relevant in regards to an infectious infiltrate. He will still need follow-up as an outpatient. I discussed with Dr. Gomez, who is on-call for cardiology. We discussed the EKG, relevant labs, relevant exam findings. Since the patient is stable and currently asymptomatic (with symptoms that are subacute/chronic rather than acute), it is reasonable to treat him with a small dose of Lasix 20 mg daily, aspirin, and metoprolol to tartrate 12.5 twice daily. I have placed a referral for the patient to see Dr. Georges and also a case management order to help him get established with primary care. Explained our plan to the patient's family. They are in agreement with the plan. We will discharge at this time after giving him first dose of these medications in the ER. Lab Data 11/08/24 22:12 11/08/24 22:12 Labs/Radiology: Radiology Impressions Chest X-Ray 11/08/24 22:17 IMPRESSION: Mild left retrocardiac opacity, which may represent focal consolidation. Laboratory Results WBC 6.08 10^3/uL (3.29-11.43) 11/08/24 22:12 RBC 4.37 10^6/uL (3.85-5.65) 11/08/24 22:12 Hgb 12.40 g/dL (11.27-16.99) 11/08/24 22:12 Hct 38.7 % (37-53) 11/08/24 22:12 MCV 88.6 fl (82-101) 11/08/24 22:12 MCH 28.4 pg (27-33) 11/08/24 22:12 MCHC 32.0 g/dL (30-55) 11/08/24 22:12 RDW 14.7 % (12.1-15.1) 11/08/24 22:12 Plt Count 145 10^3/cmm (157-399) L 11/08/24 22:12 MPV 11.0 fL (7.4-10.4) H 11/08/24 22:12 Neut % (Auto) 57.7 % 11/08/24 22:12 Lymph % (Auto) 32.1 % 11/08/24 22:12 [place] % (Auto) 8.4 % 11/08/24 22:12 Eos % (Auto) 1.0 % 11/08/24 22:12 Baso % (Auto) 0.5 % 11/08/24 22:12 Neut # (Auto) 3.51 10^3/uL (1.8-7.7) 11/08/24 22:12 Lymph # (Auto) 2.0 10^3/uL (0.8-4.8) 11/08/24 22:12 [place] # (Auto) 0.5 10^3/uL (0.2-0.9) 11/08/24 22:12 Eos # (Auto) 0.1 10^3/uL (0.0-0.8) 11/08/24 22:12 Baso # (Auto) 0.0 10^3/uL (0.0-0.1) 11/08/24 22:12 Nucleated RBC % (auto) 0 % 11/08/24 22:12 Nucleated RBCs # 0.0 /100WBC 11/08/24 22:12 Sodium 139 mmol/L (136-145) 11/08/24 22:12 Potassium 3.6 mmol/L (3.5-5.1) 11/08/24 22:12 Chloride 103 mmol/L (98-107) 11/08/24 22:12 Carbon Dioxide 27 mmol/L (22-29) 11/08/24 22:12 Anion Gap 12.6 (5-19) 11/08/24 22:12 BUN 19 mg/dL (8-23) 11/08/24 22:12 Creatinine 1.1 mg/dL (0.7-1.2) 11/08/24 22:12 GFR Calculation Not Reportable 11/08/24 22:12 Glucose 126 mg/dL (65-115) H 11/08/24 22:12 Calculated Osmolality 292 mOsm/kg (285-295) 11/08/24 22:12 Calcium 8.5 mg/dL (8.5-10.5) 11/08/24 22:12 Total Bilirubin 0.4 mg/dL (0.15-1.2) 11/08/24 22:12 AST 14 U/L (0-40) 11/08/24 22:12 ALT 8 U/L (0-41) 11/08/24 22:12 Alkaline Phosphatase 52 U/L (40-130) 11/08/24 22:12 Troponin T Baseline 25 ng/L (0-15) H 11/08/24 22:12 NT-Pro-B Natriuret Pep 1094 pg/mL (0-450) H 11/08/24 22:12 Total Protein 5.9 g/dL (6.6-8.7) L 11/08/24 22:12 Albumin 3.7 g/dL (3.5-5.2) 11/08/24 22:12 Globulin 2.2 g/dL (1.3-4.6) 11/08/24 22:12 All radiology interpretation(s) finalized by discharge ED provider radiology interpretation(s): Chest x-ray 1 view. Cardiomegaly. A few increased perihilar lung markings bilateral lower lungs. Discharge Plan Discharge Patient Disposition: Home Clinical Impression: Bigeminal rhythm, Cardiomegaly, Pulmonary hypertension, Dyspnea on exertion Condition: Stable Prescriptions: New aspirin 81 mg capsule 81 mg PO DAILY Qty: 30 0RF furosemide 20 mg tablet 20 mg PO QAM Qty: 14 0RF metoprolol tartrate 25 mg tablet 12.5 mg PO BID Qty: 30 0RF Discontinued clopidogrel 75 mg tablet 75 mg PO DAILY No Action benazepril 40 mg tablet 40 mg PO DAILY finasteride 5 mg tablet 5 mg PO DAILY rosuvastatin 10 mg tablet 10 mg PO DAILY tamsulosin 0.4 mg capsule 0.4 mg PO DAILY Discharge Orders: Discharge ED (Routine); Ordered 11/08/24 Ordered By: Burak Fountain Referrals: Venkata Kelly MD [Physician] - 11/13/24 (ER f/u. Bigeminy, cardiomegaly, pulm htn, HERNANDEZ. Started metoprolol tart 12.5 bid, asa, lasix 20mg daily.) Patient Instructions: Pulmonary Arterial Hypertension (ED), Dyspnea (ED), Premature Ventricular Contractions (ED) Activity Restrictions/Additional Instructions: 1. I have referred you to Dr Kelly. Please call Monday morning and make an appointment, ideally for the coming week. I have placed a referral in the computer. 2. Start Aspirin 81mg daily, furosemide 20mg daily, and metoprolol 12.5 mg twice daily. 3. A order has been placed to case management to help you arrange for primary care. Return to the emergency department if he has low blood pressure, passing out, extreme weakness, increasing shortness of breath, chest pain or other emergent symptoms. Please read all discharge instructions and abide by recommendations and return precautions. Make an appointment to follow-up with your primary care doctor as directed for follow-up. Return to ER if getting worse or other emergent symptoms. Print Language: Hebrew Coding Level of Care Code ED Cultural Historian for Baljinder Ring
[2024-11-08] MEDS: FUROsemide 20 mg Tablet PO (23:47)
[2024-11-08] MEDS: aspirin 325 mg Tablet PO (23:47)
[2024-11-08] MEDS: metoprolol tartrate 25 mg Tablet 12.5 MG PO (23:47)
[2024-11-08 23:57] VITALS: BP 177/48; PULSE 77; RESP 16; O2SAT 92
== END 2024-11-09 00:06 | disposition home or self-care (01) ==
PROVIDERS: Emergency Provider Emergency Medicine; PCP Family Medicine
DX: R00.8 Other abnormalities of heart beat (principal); I51.7 Cardiomegaly; I10 Essential (primary) hypertension; R06.00 Dyspnea, unspecified
CPT/HCPCS: 71045; 80053; 83880; 84484; 85025; 93005; 99285